=== PATIENT | male | born 1970 | race Caucasian/White ===

== ENCOUNTER 2016-07-16 09:26 | Emergency (ER) | payer BC, MEDICAID ==
[2016-07-16] MEDS ORDERED: Bupivacaine 0.5% 30 ML SDV INFILT ONE (09:30)
[2016-07-16] MEDS ORDERED: Propofol 200 MG/20 ML SDV IVPUSH ONE ×2 (09:46→10:30)
--- NOTE | 2016-07-16 09:52 | EDM.PDOC ---
ED HPI Trauma - General Stated Complaint: LEFT THUMB TWISTED Time Seen by Provider: 07/16/16 09:35 Source: Reports: Patient History Limitations: Reports: No limitations - History of Present Illness INITIAL COMMENTS - FREE TEXT/NARRATIVE: 45-year-old male with traumatic injury to his left thumb. His hand got caught in the Ice Auger , his gloved hand was traumatized. He has an obvious dislocation of the left thumb at the MP joint. Occurred When: just prior to arrival Severity: moderate Pain/Injury Location: Reports: upper extremity, left Associated Symptoms: Reports: denies other symptoms Allergies/ADRs: Allergies amoxicillin Allergy (Verified 07/16/16 09:34) Cannot Remember Home Medications: Ambulatory Orders LORazepam [LORazepam] 1 mg PO ASDIRECTED PRN 04/27/16 [Confirmed 07/16/16] Past Medical History HEENT History: Reports: Impaired vision Gastrointestinal History: Reports: Other (see below) Other Gastrointestinal History: elevaeted liver enzymes Musculoskeletal History: Reports: Back pain, chronic, Fracture Hematologic History: Reports: Other (see below) 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 Social & Family History - Tobacco Use Smoking Status *Q: Never Smoker Years of Tobacco use: 15 Used Tobacco, but Quit: No Second Hand Smoke Exposure: No - Caffeine Use Caffeine Use: Reports: Soda - Alcohol Use Days Per Week of Alcohol Use: 5 Number of Drinks Per Day: 6 Total Drinks Per Week: 30 - Recreational Drug Use Recreational Drug Use: No Review of Systems - Review of Systems Review Of Systems: See Below Constitutional: Denies: fever Respiratory: Denies: shortness of breath Neurological: Reports: dizziness Psychiatric: Reports: anxiety Trauma Exam - Physical Exam Exam: See Below Exam Limited By: No limitations General Appearance: Reports: alert, anxious, moderate distress Head: Reports: atraumatic Respiratory Exam: Reports: no respiratory distress Extremities: Reports: other (Left hand shows obvious dislocation and deformity of the left thumb. There is some ecchymosis to the DIP joint and subungual area.) Course - Vital Signs Last Recorded V/S: Last Vital Signs Temp 96.8 F 07/16/16 09:35 Pulse 84 03/09/17 10:15 Resp 16 07/16/16 10:15 BP 116/88 07/16/16 10:15 Pulse Ox 95 07/16/16 10:15 - Orders/Labs/Meds Meds: Medications Discontinued Medications Generic Name Dose Route Start Last Admin Trade Name Kameron PRN Reason Stop Dose Admin Bupivacaine HCl 30 ml 07/16/16 09:30 07/16/16 09:43 Marcaine 0.5% INFILT 07/16/16 09:31 30 ml ONETIME ONE Administration Ketorolac Tromethamine 30 mg 07/16/16 10:37 07/16/16 11:01 Toradol IVPUSH 07/16/16 10:38 30 mg ONETIME ONE Administration Propofol 100 mg 07/16/16 10:30 07/16/16 10:04 Diprivan 20 Ml IVPUSH 07/16/16 10:31 100 mg ONETIME ONE Administration - Re-Assessments/Exams Free Text/Narrative Re-Assessment/Exam: 07/16/16 10:15 A Marcaine digital block was performed with marginal effect. Patient was then given 100 mg of propofol IV and his thumb was reduced under sedation. A prereduction x-ray showed a likely fracture, postreduction showed normal alignment. There is however an angulated displaced fracture of the base of the proximal phalanx. Dr. hTanh Rogers, orthopedics was consulted and will see the patient this afternoon. 30 mg of Toradol IV was given. 07/16/16 10:56 Patient was discharged to the care of orthopedics. He will followup tomorrow with hand surgeon Dr. Goldberg at [facility] in [place]. Departure - Departure Time of Disposition: 11:43 Disposition: Home, Self-Care 01 Condition: good Clinical Impression: Fracture dislocation of left thumb Qualifiers: Encounter type: initial encounter Fracture type: closed Qualified Code(s): S62.502A - Fracture of unspecified phalanx of left thumb, initial encounter for closed fracture Instructions: Finger or Thumb Dislocation, [id number] Referrals: PCP,None [Primary Care Provider] - Forms: ED Department Discharge Care Plan Goals: Follow guidelines and care suggestions by orthopedics.
[2016-07-16 10:21] VITALS: BP 116/88
[2016-07-16] MEDS ORDERED: Ketorolac 30 MG/ML SDV IVPUSH ONE (10:37)
--- NOTE | 2016-07-16 11:20 | CR ---
Left hand pre and post reduction There is a dislocation of the first MCP joint. There is a fracture involving the base of the proxima l phalanx. There is an adjacent fragment of bone measuring 7 mm. Following closed reduction there is successful realignment of the joint. There is mild displacement of the previously described fracture fragment at the base of the proximal phalanx. Impression: 1. Fracture dislocation of the first MCP joint with successful reduction.
--- NOTE | 2016-07-16 13:02 | PCM.CONS ---
H&P History of Present Illness - General Source of Information: Patient History Limitations: Reports: No limitations - History of Present Illness Onset of Symptoms: Reports: today, sudden Duration of Symptoms: Reports: Hour(s): Location: Reports: upper extremity, left Quality: Reports: Ache, Pressure, Throbbing Severity: moderate Improves with: Reports: None Worsens with: Reports: Immobilization Associated Symptoms: Reports: denies other symptoms Left 1-Thumb Pain Score (Numeric/FACES): 7 - Related Data Allergies/Adverse Reactions: Allergies Allergy/AdvReac Type Severity Reaction Status Date / Time amoxicillin Allergy Cannot Verified 07/16/16 09:34 Remember Home Medications: Home Meds LORazepam [LORazepam] 1 mg PO ASDIRECTED PRN 04/27/16 [History] Past Medical History HEENT History: Reports: Impaired vision Gastrointestinal History: Reports: Other (see below) Other Gastrointestinal History: elevaeted liver enzymes Musculoskeletal History: Reports: Back pain, chronic, Fracture Hematologic History: Reports: Other (see below) 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 Social & Family History - Tobacco Use Smoking Status *Q: Never Smoker Years of Tobacco use: 15 Used Tobacco, but Quit: No Second Hand Smoke Exposure: No - Caffeine Use Caffeine Use: Reports: Soda - Alcohol Use Days Per Week of Alcohol Use: 5 Number of Drinks Per Day: 6 Total Drinks Per Week: 30 - Recreational Drug Use Recreational Drug Use: No H&P Review of Systems - Review of Systems: Review Of Systems: See Below General: Reports: no symptoms HEENT: Reports: no symptoms Pulmonary: Reports: no symptoms Cardiovascular: Reports: no symptoms Gastrointestinal: Reports: No symptoms Genitourinary: Reports: no symptoms Musculoskeletal: Reports: hand pain, joint swelling Skin: Reports: no symptoms Psychiatric: Reports: no symptoms Neurological: Reports: no symptoms Hematologic/Lymphatic: Reports: no symptoms Immunologic: Reports: no symptoms Exam - Exam Exam: See Below - Vital Signs Vital Signs: Last Vital Signs Temp 96.8 F 07/16/16 09:35 Pulse 84 07/16/16 10:15 Resp 16 07/16/16 10:15 BP 116/88 07/16/16 10:15 Pulse Ox 95 07/16/16 10:15 Weight: 176 lb - Exam General: alert, oriented Extremities: normal pulses Skin: warm, dry, intact Neuro Extensive - Mental Status: alert, oriented x3, normal mood/affect Physical Exam Comments:: requesting consultation physician: Jaime I had the pleasure of seeing the patient today in the emergency department.He is a pleasant 45-year-old male who was using an ice auger and dislocated his left thumb metacarpophalangeal joint. In the emergency department it was relocated by the emergency department staff. I was consulted for management at this point in time. He denies any previous injury to the left hand. He is right-hand dominant. Physical examination: Physical examination of the left thumb shows some mild bruising and mild swelling present. Distal motor and sensory examinations is grossly intact. I did not perform range of motion exam secondary to the dislocation. Capillary refill time is less than 2 seconds. The thumb is warm and pink. Imaging: Pre reduction imaging shows a 90 dislocation of the metacarpophalangeal joint of the left thumb. Postreduction radiographs showed good reduction. Plan: I did discuss this case with one of my classmates is a hand surgeon. Due to the patient's young age and physical labor demands at his job, I would like him to see a hand surgeon to discuss collateral ligament reconstruction. We have placed him into a thumb spica splint today. He will followup with a hand surgeon. Consult PN Assessment/Plan POD#: 0 Procedures: Procedures ASSAY OF CREATININE (11/14/15) ASSAY OF LACTIC ACID (04/27/16) ASSAY OF LIPASE (04/27/16) ASSAY OF TROPONIN QUANT (04/27/16) BLOOD CULTURE FOR BACTERIA (09/22/15) CHEST X-RAY 2VW FRONTAL&LATL (09/22/15) COMPLETE CBC W/AUTO DIFF WBC (04/27/16) COMPREHEN METABOLIC PANEL (04/27/16) CT ABD & PELV W/CONTRAST (04/27/16) DRAINAGE OF SKIN ABSCESS (11/17/14) ECHO EXAM OF ABDOMEN (08/28/15) EMERGENCY DEPT VISIT (04/27/16) EMERGENCY DEPT VISIT (09/22/15) EMERGENCY DEPT VISIT (11/17/14) EMERGENCY DEPT VISIT (11/17/14) HYDRATE IV INFUSION ADD-ON (04/27/16) IMMUNIZATION ADMIN (11/17/14) INFLUENZA ASSAY W/OPTIC (09/22/15) ROUTINE VENIPUNCTURE (04/27/16) TDAP VACCINE 7 YRS/> IM (11/17/14) THER/PROPH/DIAG INJ IV PUSH (04/27/16) THER/PROPH/DIAG INJ SC/IM (11/17/14) TX/PRO/DX INJ NEW DRUG ADDON (04/27/16) URINALYSIS AUTO W/SCOPE (09/22/15) Problem List Initiated/Reviewed/Updated: Yes Requesting Provider: Jaime Date Consult Requested: 07/16/16 Reason for Consult: thumb dislocation Patient History Reviewed: Yes Admission H&P Reviewed: Yes Notified Requestor: Yes
== END 2016-07-16 11:30 | disposition home or self-care (01) ==
LOC: JP.ED 09:26
DX: S62.512A Displaced fracture of proximal phalanx of left thumb, initial encounter for closed fracture (principal); Z88.1 Allergy status to other antibiotic agents; Z90.49 Acquired absence of other specified parts of digestive tract; W23.0XXA Caught, crushed, jammed, or pinched between moving objects, initial encounter
CPT/HCPCS: 26742; 73120; 73130; 96374; 96375; 99284; J1885; J2704

== ENCOUNTER 2020-09-16 08:34 | Emergency (ER) | payer BC ==
[2020-09-16 08:51] VITALS: BP 143/86; PULSE 98
--- NOTE | 2020-09-16 09:19 | EDM.PDOC ---
ED HPI GENERAL MEDICAL PROBLEM - General Chief Complaint: Fever Stated Complaint: FROM [facility]ION [facility] Time Seen by Provider: 09/16/20 09:05 Source of Information: Reports: Patient, Old Records, RN History Limitations: Reports: No Limitations - History of Present Illness INITIAL COMMENTS - FREE TEXT/NARRATIVE: 50 yo [facility] for a fever that patient had yesterday that resolved with antipyretics and has not returned. He is on chemo for hairy cell leukemia and is leukopenic. He has no current sx's. He says this same thing happened the last time he got chemo. His primary is Dr. Hastings. He does report some urinary frequency currently. He denies respiratory sx's. Today's total WBC ct is 0.3, and the % neutrophils is 64. His Plt's are only 49K. Onset: Sudden Onset Date: 09/15/20 Duration: Hour(s): (1), Resolved Prior to Arrival Location: Reports: Generalized Quality: Reports: Other (no pain reported) Severity: Mild Improves with: Reports: Medication (acetaminophen) Worsens with: Reports: Other (? 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 yesterday only) - Related Data Allergies Allergy/AdvReac Type Severity Reaction Status Date / Time amoxicillin Allergy Cannot Verified 09/16/20 08:50 Remember Home Meds: Home Meds Acyclovir 200 mg PO BID 09/16/20 [History] Nicotine [Habitrol] 1 applic TOP DAILY 09/16/20 [History] Ondansetron [Zofran ODT] 4 mg PO Q6H PRN 09/16/20 [History] Prochlorperazine [Compazine] 10 mg PO Q6H PRN 09/16/20 [History] Past Medical History HEENT History: Reports: Impaired Vision Gastrointestinal History: Reports: Other (See Below) Other Gastrointestinal History: elevaeted liver enzymes Musculoskeletal History: Reports: Back Pain, Chronic, Fracture Hematologic History: Reports: Other (See Below) 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 Social & Family History - Tobacco Use Tobacco Use Status *Q: Former Tobacco User Years of Tobacco use: 20 Packs/Tins Daily: 1 Used Tobacco, but Quit: Yes Month/Year Tobacco Last Used: 07/2020 - Caffeine Use Caffeine Use: Reports: Coffee, Soda - Recreational Drug Use Recreational Drug Use: No ED ROS GENERAL - Review of Systems Review Of Systems: See Below Constitutional: Reports: Fever (last yesterday) HEENT: Reports: No Symptoms Respiratory: Reports: No Symptoms Cardiovascular: Reports: No Symptoms Endocrine: Reports: No Symptoms GI/Abdominal: Reports: No Symptoms : Reports: Frequency Musculoskeletal: Reports: No Symptoms Skin: Reports: Pruritis (mild), Rash Neurological: Reports: No Symptoms ED EXAM, SEPSIS - Physical Exam Exam: See Below Exam Limited By: No Limitations General Appearance: Alert, WD/WN, No Apparent Distress Eye Exam: Bilateral Eye: Normal Inspection Ears: Normal External Exam, Normal Canal, Hearing Grossly Normal, Normal TMs Nose: Normal Inspection, No Blood Throat/Mouth: Normal Inspection, Normal Lips, Normal Oropharynx, Normal Voice, No Airway Compromise Head: Atraumatic, Normocephalic Neck: Normal Inspection Respiratory/Chest: No Respiratory Distress, Lungs Clear, Normal Breath Sounds, No Accessory Muscle Use Cardiovascular: Regular Rate, Rhythm, No Edema GI/Abdominal Exam: Normal Bowel Sounds, Soft, Non-Tender, No Distention Back: Normal Inspection. No: CVA Tenderness (R), CVA Tenderness (L) Extremities: Normal Inspection, Normal Range of Motion, Non-Tender, No Pedal Edema Neurological: Alert, Oriented, CN II-XII Intact, Normal Cognition, No Motor/Sensory Deficits Psychiatric: Normal Affect, Normal Mood Skin: Warm, Dry, Intact, Normal Color, Other (diffuse red rash). No: No Rash Course - Vital Signs Last Recorded V/S: Last Vital Signs Temp 38.3 C H 09/16/20 09:37 Pulse 98 09/16/20 08:57 Resp 16 09/16/20 08:57 BP 143/86 H 09/16/20 08:57 Pulse Ox 98 09/16/20 08:57 - Orders/Labs/Meds Orders: Active Orders 24 hr Category Date Time Status CULTURE BLOOD [BC] Stat Lab 09/16/20 09:20 Received CULTURE BLOOD [BC] Stat Lab 09/16/20 09:25 Received Labs: Laboratory Tests 09/16/20 Range/Units 09:35 Urine Color Yellow (YELLOW) Urine Appearance Clear (CLEAR) Urine pH 5.5 (5.0-8.0) Ur Specific [place] 1.025 (1.008-1.030) Urine Protein Negative (NEGATIVE) mg/dL Urine Glucose (UA) Negative (NEGATIVE) mg/dL Urine Ketones Negative (NEGATIVE) mg/dL Urine Occult Blood Negative (NEGATIVE) Urine Nitrite Negative (NEGATIVE) Urine Bilirubin Negative (NEGATIVE) Urine Urobilinogen 0.2 (0.2-1.0) EU/dL Ur Leukocyte Esterase Negative (NEGATIVE) Urine RBC Not seen (0-5) Urine WBC Not seen (0-5) Ur Epithelial Cells Not seen Amorphous Sediment Not seen Urine Bacteria Not seen Urine Mucus Few Meds: Medications Discontinued Medications Generic Name Dose Route Start Last Admin Trade Name Kameron PRN Reason Stop Dose Admin Acetaminophen 1,000 mg 09/16/20 09:50 09/16/20 09:58 Acetaminophen 500 Mg Tab PO 09/16/20 09:51 1,000 mg ONETIME ONE Administration Levofloxacin 500 mg 09/16/20 09:51 09/16/20 09:58 Levofloxacin 500 Mg Tab PO 09/16/20 09:52 500 mg ONETIME ONE Administration - Re-Assessments/Exams Free Text/Narrative Re-Assessment/Exam: 09/16/20 09:51 Fever returned while waiting in the ER after his blood draw. Acetaminophen given and Levaquin po. Departure - Departure Time of Disposition: 10:30 Disposition: Home, Self-Care 01 Condition: Fair Clinical Impression: Bacteremia Leukopenia Qualifiers: Leukopenia type: neutropenia Neutropenia type: secondary to cancer chemotherapy Qualified Code(s): D70.1 - Agranulocytosis secondary to cancer chemotherapy; T45.1X5A - Adverse effect of antineoplastic and immunosuppressive drugs, initial encounter - Discharge Information *PRESCRIPTION DRUG MONITORING PROGRAM REVIEWED*: Not Applicable *COPY OF PRESCRIPTION DRUG MONITORING REPORT IN PATIENT MACARIO: Not Applicable Referrals: Zachary Hastings MD [Primary Care Provider] - Forms: ED Department Discharge Additional Instructions: Drink ample fluids. Take acetaminophen as needed for fever. Discuss your WBC count of 0.3k(300) and a neutrophil count of 64% with your oncologist today. Follow up with Dr. Hastings in 2 days to review your blood culture results. Take your next dose of Levaquin at 10 am tomorrow and take a dose every 24hrs. Isolate yourself to reduce the risk of julianna any additional infections. Return here if worse before your appt with Dr. Hastings. Sepsis Event Note (ED) - Evaluation Sepsis Screening Result: No Definite Risk - Focused Exam Vital Signs: Vital Signs Temp Pulse Resp BP Pulse Ox 09/16/20 09:37 38.3 C H 09/16/20 08:57 37.1 C 98 16 143/86 H 98 09/16/20 08:49 37.1 C 98 16 143/86 H 98 - My Orders Last 24 Hours: My Active Orders 09/16/20 09:20 CULTURE BLOOD [BC] Stat 09/16/20 09:25 CULTURE BLOOD [BC] Stat - Assessment/Plan Last 24 Hours: My Active Orders 09/16/20 09:20 CULTURE BLOOD [BC] Stat 09/16/20 09:25 CULTURE BLOOD [BC] Stat
[2020-09-16] MEDS ORDERED: Acetaminophen 500 MG Tab PO ONE (09:50)
[2020-09-16] MEDS ORDERED: Levofloxacin 500 MG Tab PO ONE (09:51)
== END 2020-09-16 10:49 | disposition home or self-care (01) ==
LOC: JP.ED 08:34
DX: D70.1 Agranulocytosis secondary to cancer chemotherapy (principal); T45.1X5A Adverse effect of antineoplastic and immunosuppressive drugs, initial encounter; R78.81 Bacteremia; Z88.0 Allergy status to penicillin; Z87.891 Personal history of nicotine dependence; Z85.6 Personal history of leukemia
CPT/HCPCS: 36415; 81001; 87040; 99283; A9270

== ENCOUNTER 2020-09-16 16:58 | Inpatient (IN) | payer BC ==
[2020-09-16] MEDS ORDERED: Polyethylene Glycol 3350 Powder 17 GM Packet PO PRN (17:14)
[2020-09-16] MEDS ORDERED: Sodium Chloride 0.9% 10 ML Syringe FLUSH PRN (17:14)
--- NOTE | 2020-09-16 17:25 | PCM.HP.2 ---
H&P History of Present Illness - General Date of Service: 09/16/20 Admit Problem/Dx: Admission Diagnosis/Problem Admission Diagnosis/Problem Fever Source of Information: Patient, Family, Provider, RN Notes Reviewed History Limitations: Reports: No Limitations - History of Present Illness Initial Comments - Free Text/Narative: Mr. Nguyen is a 50-year-old gentleman who was admitted as a direct admission from the oncology clinic because of neutropenic fever. He has a history of recurrent hairy cell leukemia and last week received a 5-day course of chemotherapy. He has experienced a rash following chemotherapy and over the last 3 days noted low-grade temperature elevations between 100-101 degrees. Today he is felt weak and noted more intense fever. Temperature was documented at 102.6 degrees. Earlier in the day he had been seen in the emergency department, blood cultures were obtained and urinalysis showed no evidence of infection. He was feeling somewhat improved following IV fluids and was discharged home. He slept for a while at home and then awoke with significant temperature elevation. His oncology provider recommended that he come into the hospital for admission and broad-spectrum IV antibiotic therapy. Other than the fever he is noted no other localized symptoms of infection. He currently does not have a port or central line. - Related Data Allergies/Adverse Reactions: Allergies Allergy/AdvReac Type Severity Reaction Status Date / Time amoxicillin Allergy Cannot Verified 09/16/20 08:50 Remember Home Medications: Home Meds Acetaminophen [Tylenol Extra Strength] 1,000 mg PO Q6HR PRN 09/16/20 [History] Acyclovir 200 mg PO BID 09/16/20 [History] Ibuprofen 600 mg PO Q6HR PRN 09/16/20 [History] Ondansetron [Zofran ODT] 4 mg PO Q6H PRN 09/16/20 [History] Prochlorperazine [Compazine] 10 mg PO Q6H PRN 09/16/20 [History] diphenhydrAMINE [Benadryl] 50 mg PO Q6HR PRN 09/16/20 [History] Past Medical History HEENT History: Reports: Impaired Vision Gastrointestinal History: Reports: Other (See Below) Other Gastrointestinal History: elevaeted liver enzymes Musculoskeletal History: Reports: Back Pain, Chronic, Fracture Hematologic History: Reports: Other (See Below) 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 Social & Family History - Caffeine Use Caffeine Use: Reports: Coffee, Soda H&P Review of Systems - Review of Systems: Review Of Systems: See Below General: Reports: Fever, Chills, Malaise, Weakness, Fatigue, Decreased Appetite HEENT: Reports: No Symptoms Pulmonary: Reports: No Symptoms Cardiovascular: Reports: No Symptoms Gastrointestinal: Reports: Constipation, Decreased Appetite. Denies: Abdominal Pain, Diarrhea, Difficulty Swallowing, Distension, Hematemesis, Hematochezia, Melena, Nausea, Vomiting Genitourinary: Reports: No Symptoms Musculoskeletal: Reports: No Symptoms Skin: Reports: Pruritis, Rash. Denies: Wound, Lesions, Lumps Psychiatric: Reports: No Symptoms Neurological: Reports: No Symptoms Hematologic/Lymphatic: Reports: No Symptoms Immunologic: Reports: No Symptoms Exam - Exam Exam: See Below - Vital Signs Vital Signs: Last Vital Signs Temp 99.9 F 09/16/20 17:22 Pulse 99 09/16/20 17:22 Resp 16 09/16/20 17:22 BP 126/62 09/16/20 17:22 Pulse Ox 98 09/16/20 17:22 - Exam Quality Assessment: DVT Prophylaxis General: Alert, Oriented, Cooperative, Moderate Distress HEENT: Conjunctiva Clear, Hearing Intact, Mucosa Moist & [place], Normal Nasal Septum, Posterior Pharynx Clear, Pupils Equal Neck: Supple, Trachea Midline, +2 Carotid Pulse wo Bruit Lungs: Clear to Auscultation, Normal Respiratory Effort Cardiovascular: Regular Rate, Regular Rhythm, Normal S1, Normal S2. No: Systolic Murmur, Diastolic Murmur GI/Abdominal Exam: Soft, Non-Tender, No Organomegaly, No Distention Back Exam: Normal Inspection, Full Range of Motion Extremities: Non-Tender, No Pedal Edema Skin: Warm, Dry, Intact, Rash. No: Petechia, Wound Neurological: Cranial Nerves Intact, Strength Equal Bilateral, Normal Speech, Normal Tone, Sensation Intact. No: Focal Deficit Neuro Extensive - Mental Status: Alert, Oriented x3, Normal Mood/Affect, Normal Cognition, Memory Intact Sepsis Event Note - Focused Exam Vital Signs: Vital Signs Temp Pulse Resp BP Pulse Ox 09/16/20 17:22 99.9 F 99 16 126/62 98 *Q Meaningful Use (ADM) - VTE Risk Assess *Q Each Risk Factor Represents 1 Point: Age 41 - 59 years, Obesity ( BMI > 25 kg/m2) Total Score 1 Point Risk Factors: 2 Each Risk Factor Represents 2 Points: Malignancy (present or previous) Total Score 2 Point Risk Factors: 2 Each Risk Factor Represents 3 Points: None Total Score 3 Point Risk Factors: 0 Each Risk Factor Represents 5 Points: None Total Score 5 Point Risk Factors: 0 Venous Thromboembolism Risk Factor Score *Q: 4 Problem List Initiated/Reviewed/Updated: Yes Orders Last 24hrs: Active Orders 24 hr Category Date Time Status Patient Status [ADT] Routine ADT 09/16/20 17:14 Ordered Ambulate [RC] QID Care 09/16/20 17:14 Ordered Antiembolic Devices [RC] .Routine Care 09/16/20 17:14 Ordered Height and Weight [RC] DAILY Care 09/16/20 17:14 Ordered Intake and Output [RC] QSHIFT Care 09/16/20 17:14 Ordered Notify Provider Vital Signs [RC] ASDIRECTED Care 09/16/20 17:14 Ordered Oxygen Therapy [RC] PRN Care 09/16/20 17:14 Ordered Peripheral IV Care [RC] . DIRECTED Care 09/16/20 17:19 Ordered Up to Chair [RC] QID Care 09/16/20 17:14 Ordered VTE/DVT Education [RC] Per Unit Routine Care 09/16/20 17:14 Ordered Vital Signs [RC] Q4H Care 09/16/20 17:14 Ordered Regular Diet [DIET] Diet 09/16/20 Dinner Ordered Chest 2V [CR] Stat Exams 09/16/20 17:14 Ordered BASIC METABOLIC PANEL,BMP [CHEM] Stat Lab 09/16/20 17:24 Ordered CBC WITH AUTO DIFF [HEME] AM Lab 09/17/20 05:11 Ordered COMPREHENSIVE METABOLIC PN,CMP [CHEM] AM Lab 09/17/20 05:11 Ordered CULTURE BLOOD [BC] Stat Lab 09/16/20 17:14 Ordered CULTURE BLOOD [BC] Stat Lab 09/16/20 17:14 Ordered MAGNESIUM [CHEM] AM Lab 09/17/20 05:11 Ordered Acetaminophen [TylenoL] Med 09/16/20 17:14 Ordered 650 mg PO Q4H PRN Cefepime [Maxipime] 2 gm Med 09/16/20 17:30 Ordered Sodium Chloride 0.9% [Normal Saline] 50 ml IV Q8H Ondansetron [Zofran] Med 09/16/20 17:14 Ordered 4 mg IV Q4H PRN Sodium Chloride 0.9% @ 125 MLS/HR (1000ml) Med 09/16/20 17:15 Ordered Sodium Chloride 0.9% [Normal Saline] 1,000 ml IV ASDIRECTED Sodium Chloride 0.9% [Saline Flush] Med 09/16/20 17:14 Ordered 10 ml FLUSH ASDIRECTED PRN Vancomycin Med 09/16/20 18:00 Ordered 1 gm IV .PHARMACY TO DOSE polyethylene glycoL 3350 [MiraLAX] Med 09/16/20 17:14 Ordered 17 gm PO DAILY PRN Blood Culture x2 Reflex Set [OM.PC] Stat Oth 09/16/20 17:18 Ordered Peripheral IV Insertion Adult [OM.PC] Routine Oth 09/16/20 17:14 Ordered Sequential Compression Device [OM.PC] Per Unit Routine Oth 09/16/20 17:17 Ordered Resuscitation Status Routine Resus Stat 09/16/20 17:14 Ordered Assessment/Plan Comment:: ASSESSMENT AND PLAN NEUTROPENIC FEVER-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 Urinalysis obtained earlier today shows no obvious infection. By history and physical examination no obvious source identified. -2 sets of blood cultures pending -CBC with differential in a.m. -PA and lateral chest x-ray -Initiate broad-spectrum antibiotic therapy; vancomycin and cefepime -Tylenol as needed for fever -IV fluids for hydration, reassess in a.m. HAIRY CELL LEUKEMIA-status post recent course of chemotherapy, complicated by neutropenia MAINTENANCE ISSUES -DVT prophylaxis; SCUDs -GI prophylaxis; not indicated -Victor catheter; not indicated -Nutrition; regular diet -Nicotine dependence; not required CODE STATUS-FULL CODE ADMISSION STATUS-patient will be admitted to inpatient status, expect at least a 2 night hospital stay for evaluation and management of problems as outlined above. At the time of this admission I do not reasonably expected evaluation and management of this problem will require more than a 96 hour hospital stay. DISPOSITION-anticipate discharge to home after the hospital stay. PRIMARY CARE PROVIDER-Dr. Hastings - Mortality Measure Prognosis:: Good
[2020-09-16] MEDS ORDERED: Vancomycin 1 GM SDV IV SCH (18:00)
[2020-09-16] MEDS: Sodium Chloride 0.9% 1,000 ML IV SCH (18:09)
[2020-09-16] MEDS: Cefepime 2 GM in Sodium Chloride 0.9% 50 ML IV SCH (18:10)
[2020-09-16] MEDS: diphenhydrAMINE 25 MG Cap PO PRN (18:24)
[2020-09-16] MEDS: Ondansetron 4 MG/2 ML SDV IV PRN (18:52)
[2020-09-16] MEDS ORDERED: Calcium Carbonate 500 MG Tab.Chew PO PRN (20:42)
[2020-09-16] MEDS ORDERED: Pantoprazole 40 MG Vial IVPUSH SCH (22:30)
[2020-09-16] MEDS: Prochlorperazine 10 MG Tab PO PRN (23:34)
[2020-09-16] MEDS: Acetaminophen 325 MG Tab PO PRN (23:39)
[2020-09-17] MEDS: diphenhydrAMINE 25 MG Cap PO PRN (02:22)
[2020-09-17] MEDS: Cefepime 2 GM in Sodium Chloride 0.9% 50 ML IV SCH ×3 (02:22→17:38)
[2020-09-17] MEDS: Sodium Chloride 0.9% 1,000 ML IV SCH ×2 (02:25→11:28)
[2020-09-17] MEDS: Prochlorperazine 10 MG Tab PO PRN (07:24)
--- NOTE | 2020-09-17 09:14 | CR ---
CHEST: 2 view CLINICAL HISTORY:Neutropenia, fever COMPARISON:2016 FINDINGS: The heart size, pulmonary vascularity and hilar structures are normal. No infiltrate effusion or pneumothorax is seen. IMPRESSION: No acute cardiopulmonary process.
[2020-09-17] MEDS: Ondansetron 4 MG/2 ML SDV IV PRN (10:14)
[2020-09-17] MEDS: Acetaminophen 325 MG Tab PO PRN ×3 (10:45→23:53)
--- NOTE | 2020-09-17 14:22 | PCM.PN ---
- General Info Date of Service: 09/17/20 Subjective Update: Mr. Nguyen has been stable since admission with no recurrent significant temperature elevation since yesterday. Subjectively he feels improved, somewhat stronger with improved appetite. Neutrophil count remains extremely low. Functional Status: Reports: Tolerating Diet, Urinating - Review of Systems General: Reports: Weakness, Fatigue. Denies: Fever, Chills Pulmonary: Reports: No Symptoms Cardiovascular: Reports: No Symptoms Gastrointestinal: Reports: No Symptoms Genitourinary: Reports: No Symptoms - Patient Data Vitals - Most Recent: Last Vital Signs Temp 100.1 F 09/17/20 11:15 Pulse 100 09/17/20 10:37 Resp 18 09/17/20 10:37 BP 125/72 09/17/20 10:37 Pulse Ox 100 09/17/20 10:37 Weight - Most Recent: 180 lb 0.013 oz I&O - Last 24 Hours: Intake & Output 09/16/20 09/17/20 09/17/20 22:59 06:59 14:59 Intake Total 450 2403 Output Total 200 200 600 Balance 250 -200 1803 Lab Results Last 24 Hours: Laboratory Results - last 24 hr 09/16/20 09/17/20 09/17/20 Range/Units 17:40 04:00 04:00 WBC 0.3 L* (4.5-11.0) K/uL RBC 4.17 L (4.30-5.90) M/uL Hgb 12.7 D (12.0-15.0) g/dL Hct 36.9 L (40.0-54.0) % MCV 89 (80-98) fL MCH 31 (27-31) pg MCHC 34 (32-36) % Plt Count 61 L (150-400) K/uL Neut % (Auto) 71 H (36-66) % Lymph % (Auto) 14 L (24-44) % [place] % (Auto) 4 (2-6) % Eos % (Auto) 11 H (2-4) % Baso % (Auto) 0 (0-1) % Sodium 139 L 139 L (140-148) mmol/L Potassium 4.0 4.3 (3.6-5.2) mmol/L Chloride 103 105 (100-108) mmol/L Carbon Dioxide 22 23 (21-32) mmol/L Anion Gap 18.0 H 15.3 H (5.0-14.0) mmol/L BUN 19 H 18 (7-18) mg/dL Creatinine 1.3 D 1.2 (0.8-1.3) mg/dL Est Cr Clr Drug Dosing 65.77 71.25 mL/min Estimated GFR (MDRD) 58 L > 60 (>60) Glucose 118 H 131 H (74-106) mg/dL Calcium 8.1 L 8.0 L (8.5-10.1) mg/dL Magnesium 1.6 L (1.8-2.4) mg/dL Total Bilirubin 0.9 (0.2-1.0) mg/dL AST 17 (15-37) U/L ALT 35 (12-78) U/L Alkaline Phosphatase 90 (46-116) U/L Total Protein 5.5 L (6.4-8.2) g/dL Albumin 2.8 L (3.4-5.0) g/dL Globulin 2.7 (2.3-3.5) g/dL Albumin/Globulin Ratio 1.0 L (1.2-2.2) Med Orders - Current: Current Medications Acetaminophen (Acetaminophen 325 Mg Tab) 650 mg PO Q4H PRN PRN Reason: Pain (Mild 1-3)/fever Last Admin: 09/17/20 10:45 Dose: 650 mg Documented by: Calcium Carbonate/Glycine (Calcium Carbonate 500 Mg Tab.Chew) 1,000 mg PO Q2H PRN PRN Reason: Indigestion Last Admin: 09/16/20 21:51 Dose: 1,000 mg Documented by: Diphenhydramine HCl (Diphenhydramine 25 Mg Cap) 50 mg PO Q6H PRN PRN Reason: Itching Last Admin: 09/17/20 02:22 Dose: 50 mg Documented by: Cefepime HCl 2 gm/ Sodium (Chloride) 50 mls @ 100 mls/hr IV Q8H [facility] Last Admin: 09/17/20 10:10 Dose: 100 mls/hr Documented by: Vancomycin HCl 1.25 gm/ Sodium (Chloride) 250 mls @ 166.667 mls/hr IV Q12H [facility] Magnesium Oxide (Magnesium Oxide 400 Mg Tab) 400 mg PO BID [facility] Ondansetron HCl (Ondansetron 4 Mg/2 Ml Sdv) 4 mg IV Q4H PRN PRN Reason: Nausea/Vomiting Last Admin: 09/17/20 10:14 Dose: 4 mg Documented by: Pantoprazole Sodium (Pantoprazole 40 Mg Vial) 40 mg IVPUSH Q24H [facility] Last Admin: 09/16/20 23:33 Dose: 40 mg Documented by: Polyethylene Glycol (Polyethylene Glycol 3350 Powder 17 Gm Packet) 17 gm PO DAILY PRN PRN Reason: Constipation Prochlorperazine Maleate (Prochlorperazine 10 Mg Tab) 10 mg PO Q6H PRN PRN Reason: Nausea/Vomiting Last Admin: 09/17/20 07:24 Dose: 10 mg Documented by: Sodium Chloride (Sodium Chloride 0.9% 10 Ml Syringe) 10 ml FLUSH ASDIRECTED PRN PRN Reason: Keep Vein Open Tbo-Filgrastim (Tbo-Filgrastim 300 Mcg/0.5 Ml Syringe) 410 mcg SUBCUT DAILY [facility] Discontinued Medications Sodium Chloride (Normal Saline) 1,000 mls @ 125 mls/hr IV ASDIRECTED [facility] Last Admin: 09/17/20 11:28 Dose: 125 mls/hr Documented by: Vancomycin HCl 1.75 gm/ Sodium (Chloride) 250 mls @ 166.667 mls/hr IV ONETIME ONE Stop: 09/16/20 19:59 Last Admin: 09/16/20 18:43 Dose: 166.667 mls/hr Documented by: Vancomycin HCl 1.25 gm/ Sodium (Chloride) 250 mls @ 166.667 mls/hr IV Q12H [facility] Stop: 09/17/20 10:30 Last Admin: 09/17/20 08:06 Dose: 166.667 mls/hr Documented by: Vancomycin HCl (Vancomycin 1 Gm Sdv) 1 gm IV .PHARMACY TO DOSE [facility] Stop: 09/16/20 18:01 - Exam Quality Assessment: DVT Prophylaxis General: Alert, Oriented, Cooperative, No Acute Distress Lungs: Clear to Auscultation, Normal Respiratory Effort Cardiovascular: Regular Rate, Regular Rhythm, No Murmurs GI/Abdominal Exam: Soft, Non-Tender, No Organomegaly, No Distention Extremities: Non-Tender, No Pedal Edema - Patient Data Lab Results Last 24 hrs: Laboratory Results - last 24 hr 09/16/20 09/17/2009/17/21 Range/Units 17:40 04:00 04:00 WBC 0.3 L* (4.5-11.0) K/uL RBC 4.17 L (4.30-5.90) M/uL Hgb 12.7 D (12.0-15.0) g/dL Hct 36.9 L (40.0-54.0) % MCV 89 (80-98) fL MCH 31 (27-31) pg MCHC 34 (32-36) % Plt Count 61 L (150-400) K/uL Neut % (Auto) 71 H (36-66) % Lymph % (Auto) 14 L (24-44) % [place] % (Auto) 4 (2-6) % Eos % (Auto) 11 H (2-4) % Baso % (Auto) 0 (0-1) % Sodium 139 L 139 L (140-148) mmol/L Potassium 4.0 4.3 (3.6-5.2) mmol/L Chloride 103 105 (100-108) mmol/L Carbon Dioxide 22 23 (21-32) mmol/L Anion Gap 18.0 H 15.3 H (5.0-14.0) mmol/L BUN 19 H 18 (7-18) mg/dL Creatinine 1.3 D 1.2 (0.8-1.3) mg/dL Est Cr Clr Drug Dosing 65.77 71.25 mL/min Estimated GFR (MDRD) 58 L > 60 (>60) Glucose 118 H 131 H (74-106) mg/dL Calcium 8.1 L 8.0 L (8.5-10.1) mg/dL Magnesium 1.6 L (1.8-2.4) mg/dL Total Bilirubin 0.9 (0.2-1.0) mg/dL AST 17 (15-37) U/L ALT 35 (12-78) U/L Alkaline Phosphatase 90 (46-116) U/L Total Protein 5.5 L (6.4-8.2) g/dL Albumin 2.8 L (3.4-5.0) g/dL Globulin 2.7 (2.3-3.5) g/dL Albumin/Globulin Ratio 1.0 L (1.2-2.2) Result Diagrams: 09/17/20 04:00 09/17/20 04:00 Sepsis Event Note - Evaluation Sepsis Screening Result: No Definite Risk - Focused Exam Vital Signs: Vital Signs Temp Temp Pulse Resp BP Pulse Ox 09/17/20 11:15 100.1 F 09/17/20 10:45 100.4 F 09/17/20 10:37 100.4 F 100 18 125/72 100 09/17/20 07:22 98.4 F 88 18 143/79 H 99 09/17/20 02:34 97.8 F 89 18 99 - Problem List Review Problem List Initiated/Reviewed/Updated: Yes - My Orders Last 24 Hours: My Active Orders 09/16/20 Dinner Regular Diet [DIET] 09/16/20 17:14 Patient Status [ADT] Routine Ambulate [RC] QID Antiembolic Devices [RC] .Routine Height and Weight [RC] DAILY Intake and Output [RC] QSHIFT Notify Provider Vital Signs [RC] ASDIRECTED Oxygen Therapy [RC] PRN Up to Chair [RC] QID Vital Signs [RC] Q4H Acetaminophen [TylenoL] 650 mg PO Q4H PRN Ondansetron [Zofran] 4 mg IV Q4H PRN Sodium Chloride 0.9% [Saline Flush] 10 ml FLUSH ASDIRECTED PRN polyethylene glycoL 3350 [MiraLAX] 17 gm PO DAILY PRN Peripheral IV Insertion Adult [OM.PC] Routine Resuscitation Status Routine 09/16/20 17:17 Sequential Compression Device [OM.PC] Per Unit Routine 09/16/20 17:18 Blood Culture x2 Reflex Set [OM.PC] Stat 09/16/20 17:19 Peripheral IV Care [RC] Q12H 09/16/20 17:30 CULTURE BLOOD [BC] Routine 09/16/20 17:40 CULTURE BLOOD [BC] Routine 09/16/20 17:53 diphenhydrAMINE [Benadryl] 50 mg PO Q6H PRN 09/16/20 18:00 Cefepime [Maxipime] 2 gm Sodium Chloride 0.9% [Normal Saline] 50 ml IV Q8H 09/17/20 14:15 Magnesium Oxide 400 mg PO BID Tbo-Filgrastim [Granix] 410 mcg SUBCUT DAILY 09/17/20 14:16 Convert IV to Saline Lock [OM.PC] Routine 09/17/20 20:00 Vancomycin 1.25 gm Sodium Chloride 0.9% [Normal Saline] 250 ml IV Q12H 09/18/20 05:00 BASIC METABOLIC PANEL,BMP [CHEM] Timed CBC WITH AUTO DIFF [HEME] Timed MAGNESIUM [CHEM] Timed - Plan Plan:: ASSESSMENT AND PLAN NEUTROPENIC FEVER-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 Stable since admission with no recurrent temperature elevations, neutrophil count remains extremely low. -2 sets of blood cultures pending -CBC with differential in a.m. -broad-spectrum antibiotic therapy; vancomycin and cefepime -Tylenol as needed for fever -Saline lock IV -Granulocyte colony-stimulating factor-we will start today 5 mcg/kg HAIRY CELL LEUKEMIA-status post recent course of chemotherapy, complicated by neutropenia MAINTENANCE ISSUES -DVT prophylaxis; SCUDs -GI prophylaxis; not indicated -Victor catheter; not indicated -Nutrition; regular diet -Nicotine dependence; not required CODE STATUS-FULL CODE ADMISSION STATUS-patient will be admitted to inpatient status, expect at least a 2 night hospital stay for evaluation and management of problems as outlined above. At the time of this admission I do not reasonably expected evaluation and management of this problem will require more than a 96 hour hospital stay. DISPOSITION-anticipate discharge to home after the hospital stay. PRIMARY CARE PROVIDER-Dr. Hastings
[2020-09-17] MEDS: Magnesium Oxide 400 MG Tab PO SCH ×2 (14:55→20:16)
[2020-09-17] MEDS: Ibuprofen 400 MG Tab PO PRN (17:38)
[2020-09-17] MEDS: Pantoprazole 40 MG Tab.CR PO SCH (20:16)
[2020-09-17] MEDS: Ondansetron 4 MG Tab.DIS PO PRN (22:26)
[2020-09-18] MEDS: Ibuprofen 400 MG Tab PO PRN ×4 (01:10→20:19)
[2020-09-18] MEDS: Cefepime 2 GM in Sodium Chloride 0.9% 50 ML IV SCH ×3 (01:10→18:08)
[2020-09-18] MEDS: Acetaminophen 325 MG Tab PO PRN ×3 (08:42→18:07)
[2020-09-18] MEDS: Magnesium Oxide 400 MG Tab PO SCH ×2 (10:10→22:03)
[2020-09-18] MEDS: diphenhydrAMINE 25 MG Cap PO PRN ×2 (12:54→20:19)
[2020-09-18] MEDS: Ondansetron 4 MG Tab.DIS PO PRN ×3 (12:56→22:03)
[2020-09-18] MEDS ORDERED: Acetaminophen/HYDROcodone 325-10 MG Tab PO PRN (13:31)
--- NOTE | 2020-09-18 13:35 | PCM.PN ---
- General Info Date of Service: 09/18/20 Subjective Update: Mr. Nguyen has remained fairly stable over the last 24 hours. Vital signs have been good, he continues to experience low-grade temperature elevations. Functional Status: Reports: Ambulating, Urinating - Review of Systems General: Reports: Fever, Weakness, Fatigue, Chills Pulmonary: Reports: No Symptoms Cardiovascular: Reports: No Symptoms Gastrointestinal: Reports: No Symptoms Genitourinary: Reports: No Symptoms - Patient Data Vitals - Most Recent: Last Vital Signs Temp 98.8 F 09/18/20 12:54 Pulse 94 09/18/20 10:51 Resp 18 09/18/20 10:51 BP 125/70 09/18/20 10:51 Pulse Ox 98 09/18/20 10:51 Weight - Most Recent: 180 lb 0.013 oz I&O - Last 24 Hours: Intake & Output 09/17/20 09/18/20 09/18/20 22:59 06:59 14:59 Intake Total 621 1100 400 Balance 621 1100 400 Lab Results Last 24 Hours: Laboratory Results - last 24 hr 09/18/20 09/18/20 Range/Units 06:04 06:04 WBC 0.4 L* (4.5-11.0) K/uL RBC 3.67 L (4.30-5.90) M/uL Hgb 11.2 L (12.0-15.0) g/dL Hct 32.7 L (40.0-54.0) % MCV 89 (80-98) fL MCH 31 (27-31) pg MCHC 34 (32-36) % Plt Count 64 L (150-400) K/uL Neut % (Auto) 71 H (36-66) % Lymph % (Auto) 20 L (24-44) % Bacon % (Auto) 0 L (2-6) % Eos % (Auto) 6 H (2-4) % Baso % (Auto) 3 H (0-1) % Sodium 140 (140-148) mmol/L Potassium 3.9 (3.6-5.2) mmol/L Chloride 107 (100-108) mmol/L Carbon Dioxide 24 (21-32) mmol/L Anion Gap 9.3 (5.0-14.0) mmol/L BUN 12 (7-18) mg/dL Creatinine 1.0 (0.8-1.3) mg/dL Est Cr Clr Drug Dosing 85.82 mL/min Estimated GFR (MDRD) > 60 (>60) Glucose 97 (74-106) mg/dL Calcium 7.8 L (8.5-10.1) mg/dL Magnesium 1.7 L (1.8-2.4) mg/dL Kash Results Last 24 Hours: Microbiology 09/16/20 17:40 Aerobic Blood Culture - Preliminary Blood - Arm, Left NO GROWTH AFTER 1 DAY Anaerobic Blood Culture - Preliminary NO GROWTH AFTER 1 DAY 09/16/20 17:30 Aerobic Blood Culture - Preliminary Blood - Arm, Right NO GROWTH AFTER 1 DAY Anaerobic Blood Culture - Preliminary NO GROWTH AFTER 1 DAY Med Orders - Current: Current Medications Acetaminophen (Acetaminophen 325 Mg Tab) 650 mg PO Q4H PRN PRN Reason: Pain (Mild 1-3)/fever Last Admin: 09/18/20 12:54 Dose: 650 mg Documented by: Hydrocodone Bitart/Acetaminophen (Acetaminophen/Hydrocodone 325-5 Mg Tab) 1 tab PO Q4H PRN PRN Reason: Pain Calcium Carbonate/Glycine (Calcium Carbonate 500 Mg Tab.Chew) 1,000 mg PO Q2H PRN PRN Reason: Indigestion Last Admin: 09/16/20 21:51 Dose: 1,000 mg Documented by: Diphenhydramine HCl (Diphenhydramine 25 Mg Cap) 50 mg PO Q6H PRN PRN Reason: Itching Last Admin: 09/18/20 12:54 Dose: 50 mg Documented by: Cefepime HCl 2 gm/ Sodium (Chloride) 50 mls @ 100 mls/hr IV Q8H [facility] [place] Last Admin: 09/18/20 10:42 Dose: 100 mls/hr Documented by: Vancomycin HCl 1.25 gm/ Sodium (Chloride) 250 mls @ 166.667 mls/hr IV Q12H [facility] [place] Last Admin: 09/18/20 08:31 Dose: 166.667 mls/hr Documented by: Ibuprofen (Ibuprofen 400 Mg Tab) 400 mg PO Q6H PRN PRN Reason: Fever Last Admin: 09/18/20 07:41 Dose: 400 mg Documented by: Magnesium Oxide (Magnesium Oxide 400 Mg Tab) 400 mg PO BID [facility] [place] Last Admin: 09/18/20 10:10 Dose: 400 mg Documented by: Ondansetron HCl (Ondansetron 4 Mg Tab.Dis) 4 mg PO Q4H PRN PRN Reason: Nausea/Vomiting Last Admin: 09/18/20 12:56 Dose: 4 mg Documented by: Pantoprazole Sodium (Pantoprazole 40 Mg Tab.Cr) 40 mg PO BEDTIME [facility] [place] Last Admin: 09/17/20 20:16 Dose: 40 mg Documented by: Polyethylene Glycol (Polyethylene Glycol 3350 Powder 17 Gm Packet) 17 gm PO DAILY PRN PRN Reason: Constipation Prochlorperazine Maleate (Prochlorperazine 10 Mg Tab) 10 mg PO Q6H PRN PRN Reason: Nausea/Vomiting Last Admin: 09/17/20 07:24 Dose: 10 mg Documented by: Sodium Chloride (Sodium Chloride 0.9% 10 Ml Syringe) 10 ml FLUSH ASDIRECTED PRN PRN Reason: Keep Vein Open Tbo-Filgrastim (Tbo-Filgrastim 480 Mcg/0.8 Ml Syringe) 420 mcg SUBCUT DAILY [facility] [place] Last Admin: 09/18/20 10:11 Dose: 420 mcg Documented by: Discontinued Medications Hydrocodone Bitart/Acetaminophen (Acetaminophen/Hydrocodone 325-10 Mg Tab) 1 tab PO Q4H PRN PRN Reason: Pain Sodium Chloride (Normal Saline) 1,000 mls @ 125 mls/hr IV ASDIRECTED [facility] [place] Last Admin: 09/17/20 11:28 Dose: 125 mls/hr Documented by: Vancomycin HCl 1.75 gm/ Sodium (Chloride) 250 mls @ 166.667 mls/hr IV ONETIME ONE Stop: 09/16/20 19:59 Last Admin: 09/16/20 18:43 Dose: 166.667 mls/hr Documented by: Vancomycin HCl 1.25 gm/ Sodium (Chloride) 250 mls @ 166.667 mls/hr IV Q12H [facility] [place] Stop: 09/17/20 10:30 Last Admin: 09/17/20 08:06 Dose: 166.667 mls/hr Documented by: Ondansetron HCl (Ondansetron 4 Mg/2 Ml Sdv) 4 mg IV Q4H PRN PRN Reason: Nausea/Vomiting Last Admin: 09/17/20 10:14 Dose: 4 mg Documented by: Pantoprazole Sodium (Pantoprazole 40 Mg Vial) 40 mg IVPUSH Q24H [facility] [place] Last Admin: 09/16/20 23:33 Dose: 40 mg Documented by: Tbo-Filgrastim (Tbo-Filgrastim 300 Mcg/0.5 Ml Syringe) 420 mcg SUBCUT DAILY [facility] [place] Last Admin: 09/17/20 14:51 Dose: 420 mcg Documented by: Vancomycin HCl (Vancomycin 1 Gm Sdv) 1 gm IV .PHARMACY TO DOSE [facility] [place] Stop: 09/16/20 18:01 - Exam General: Alert, Oriented, Cooperative, Mild Distress Lungs: Clear to Auscultation, Normal Respiratory Effort Cardiovascular: Regular Rate, Regular Rhythm, No Murmurs GI/Abdominal Exam: Soft, Non-Tender, No Organomegaly, No Distention Extremities: Non-Tender, No Pedal Edema - Patient Data Lab Results Last 24 hrs: Laboratory Results - last 24 hr 09/18/20 09/18/20 Range/Units 06:04 06:04 WBC 0.4 L* (4.5-11.0) K/uL RBC 3.67 L (4.30-5.90) M/uL Hgb 11.2 L (12.0-15.0) g/dL Hct 32.7 L (40.0-54.0) % MCV 89 (80-98) fL MCH 31 (27-31) pg MCHC 34 (32-36) % Plt Count 64 L (150-400) K/uL Neut % (Auto) 71 H (36-66) % Lymph % (Auto) 20 L (24-44) % Bacon % (Auto) 0 L (2-6) % Eos % (Auto) 6 H (2-4) % Baso % (Auto) 3 H (0-1) % Sodium 140 (140-148) mmol/L Potassium 3.9 (3.6-5.2) mmol/L Chloride 107 (100-108) mmol/L Carbon Dioxide 24 (21-32) mmol/L Anion Gap 9.3 (5.0-14.0) mmol/L BUN 12 (7-18) mg/dL Creatinine 1.0 (0.8-1.3) mg/dL Est Cr Clr Drug Dosing 85.82 mL/min Estimated GFR (MDRD) > 60 (>60) Glucose 97 (74-106) mg/dL Calcium 7.8 L (8.5-10.1) mg/dL Magnesium 1.7 L (1.8-2.4) mg/dL Result Diagrams: 09/18/20 06:04 09/18/20 06:04 Kash Results Last 24 hrs: Microbiology 09/16/20 17:40 Aerobic Blood Culture - Preliminary Blood - Arm, Left NO GROWTH AFTER 1 DAY Anaerobic Blood Culture - Preliminary NO GROWTH AFTER 1 DAY 09/16/20 17:30 Aerobic Blood Culture - Preliminary Blood - Arm, Right NO GROWTH AFTER 1 DAY Anaerobic Blood Culture - Preliminary NO GROWTH AFTER 1 DAY Sepsis Event Note - Evaluation Sepsis Screening Result: Severe Sepsis Risk - Focused Exam Vital Signs: Vital Signs Temp Temp Pulse Resp BP Pulse Ox 09/18/20 12:54 98.8 F 09/18/20 10:51 98.4 F 94 18 125/70 98 09/18/20 09:12 97.3 F 09/18/20 08:42 100.3 F 09/18/20 08:41 97.3 F 09/18/20 08:23 100.2 F 94 18 124/74 98 09/18/20 07:41 208.2 F H 09/18/20 05:50 98.1 F - Problem List Review Problem List Initiated/Reviewed/Updated: Yes - My Orders Last 24 Hours: My Active Orders 09/17/20 14:15 Magnesium Oxide 400 mg PO BID 09/17/20 14:16 Convert IV to Saline Lock [OM.PC] Routine 09/17/20 16:31 Ibuprofen [Motrin] 400 mg PO Q6H PRN 09/17/20 20:00 Vancomycin 1.25 gm Sodium Chloride 0.9% [Normal Saline] 250 ml IV Q12H 09/17/20 21:11 Ondansetron [Zofran ODT] 4 mg PO Q4H PRN 09/18/20 09:00 Tbo-Filgrastim [Granix] 420 mcg SUBCUT DAILY 09/18/20 13:32 Acetaminophen/HYDROcodone [[place] 325-5 MG] 1 tab PO Q4H PRN 09/19/20 05:00 BASIC METABOLIC PANEL,BMP [CHEM] Timed CBC WITH AUTO DIFF [HEME] Timed MAGNESIUM [CHEM] Timed 09/19/20 07:30 VANCOMYCIN TROUGH [CHEM] Timed - Plan Plan:: ASSESSMENT AND PLAN NEUTROPENIC FEVER-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 Stable since admission with only low-grade temperature anahi vations, neutrophil count remains extremely low. -2 sets of blood cultures pending -CBC with differential in a.m. -broad-spectrum antibiotic therapy; vancomycin and cefepime -Tylenol as needed for fever -Saline lock IV -Granulocyte colony-stimulating factor-5 mcg/kg daily HAIRY CELL LEUKEMIA-status post recent course of chemotherapy, complicated by neutropenia MAINTENANCE ISSUES -DVT prophylaxis; SCUDs -GI prophylaxis; not indicated -Victor catheter; not indicated -Nutrition; regular diet -Nicotine dependence; not required CODE STATUS-FULL CODE ADMISSION STATUS-patient will be admitted to inpatient status, expect at least a 2 night hospital stay for evaluation and management of problems as outlined above. At the time of this admission I do not reasonably expected evaluation and management of this problem will require more than a 96 hour hospital stay. DISPOSITION-anticipate discharge to home after the hospital stay. PRIMARY CARE PROVIDER-Dr. Hastings
[2020-09-18] MEDS: Acetaminophen/HYDROcodone 325-5 MG Tab PO PRN ×2 (18:06→22:03)
[2020-09-18] MEDS: Pantoprazole 40 MG Tab.CR PO SCH (22:03)
[2020-09-19] MEDS: Ondansetron 4 MG Tab.DIS PO PRN ×2 (02:22→07:32)
[2020-09-19] MEDS: Ibuprofen 400 MG Tab PO PRN ×4 (02:22→22:59)
[2020-09-19] MEDS: Cefepime 2 GM in Sodium Chloride 0.9% 50 ML IV SCH ×2 (02:22→10:40)
[2020-09-19] MEDS: Acetaminophen/HYDROcodone 325-5 MG Tab PO PRN (03:31)
[2020-09-19] MEDS: diphenhydrAMINE 25 MG Cap PO PRN ×3 (07:32→19:43)
[2020-09-19] MEDS: Magnesium Oxide 400 MG Tab PO SCH ×2 (08:29→21:43)
[2020-09-19] MEDS: Acetaminophen 325 MG Tab PO PRN ×3 (09:21→19:42)
[2020-09-19] MEDS ORDERED: HYDROmorphone 0.5 MG/0.5 ML Syringe IVPUSH ONE (10:20)
[2020-09-19] MEDS ORDERED: diphenhydrAMINE 50 MG/ML SDV IVPUSH ONE (11:00)
[2020-09-19] MEDS ORDERED: Famotidine 20 MG/2 ML SDV IVPUSH ONE (11:00)
--- NOTE | 2020-09-19 11:57 | PCM.PN ---
- General Info Date of Service: 09/19/20 Subjective Update: Mr. Nguyen has remained neutropenic with low-grade fevers. This morning appears to be experiencing vancomycin flushing syndrome, he is very erythematous and experiencing joint and muscle aches with his vancomycin infusion. White blood cell count modestly increased since yesterday with a total white count of 500 and calculated ANC of 274. - Review of Systems General: Reports: Fever, Weakness, Fatigue, Malaise Pulmonary: Reports: Cough, Sputum. Denies: Shortness of Breath, Pleuritic Chest Pain, Hemoptysis, Wheezing Cardiovascular: Reports: Dyspnea on Exertion. Denies: Chest Pain, Palpitations, Orthopnea, PND, Edema, Lightheadedness Gastrointestinal: Reports: No Symptoms Genitourinary: Reports: No Symptoms - Patient Data Vitals - Most Recent: Last Vital Signs Temp 99.9 F 09/19/20 11:36 Pulse 90 09/19/20 07:21 Resp 16 09/19/20 07:21 BP 113/70 09/19/20 07:21 Pulse Ox 98 09/19/20 07:21 Weight - Most Recent: 180 lb 0.013 oz I&O - Last 24 Hours: Intake & Output 09/18/20 09/19/20 09/19/20 22:59 06:59 14:59 Intake Total 1000 1210 Balance 1000 1210 Lab Results Last 24 Hours: Laboratory Results - last 24 hr 09/19/20 09/19/20 09/19/20 Range/Units 07:34 07:34 07:34 WBC 0.5 L* (4.5-11.0) K/uL RBC 3.62 L (4.30-5.90) M/uL Hgb 10.9 L (12.0-15.0) g/dL Hct 32.1 L (40.0-54.0) % MCV 89 (80-98) fL MCH 30 (27-31) pg MCHC 34 (32-36) % Plt Count 69 L (150-400) K/uL Add Manual Diff Yes Neutrophils % (Manual) 54 (36-66) % Band Neutrophils % 4 L (5-11) % Lymphocytes % (Manual) 40 (24-44) % Eosinophils % (Manual) 2 (2-4) % Sodium 139 L (140-148) mmol/L Potassium 3.6 (3.6-5.2) mmol/L Chloride 104 (100-108) mmol/L Carbon Dioxide 26 (21-32) mmol/L Anion Gap 12.6 (5.0-14.0) mmol/L BUN 11 (7-18) mg/dL Creatinine 1.0 (0.8-1.3) mg/dL Est Cr Clr Drug Dosing 85.82 mL/min Estimated GFR (MDRD) > 60 (>60) Glucose 86 (74-106) mg/dL Calcium 7.6 L (8.5-10.1) mg/dL Magnesium 1.7 L (1.8-2.4) mg/dL Vancomycin Trough 7.2 L (10.0-20.0) ug/mL Kash Results Last 24 Hours: Microbiology 09/16/20 17:40 Aerobic Blood Culture - Preliminary Blood - Arm, Left NO GROWTH AFTER 2 DAYS Anaerobic Blood Culture - Preliminary NO GROWTH AFTER 2 DAYS 09/16/20 17:30 Aerobic Blood Culture - Preliminary Blood - Arm, Right NO GROWTH AFTER 2 DAYS Anaerobic Blood Culture - Preliminary NO GROWTH AFTER 2 DAYS Med Orders - Current: Current Medications Acetaminophen (Acetaminophen 325 Mg Tab) 650 mg PO Q4H PRN PRN Reason: Pain (Mild 1-3)/fever Last Admin: 09/19/20 09:21 Dose: 650 mg Documented by: Hydrocodone Bitart/Acetaminophen (Acetaminophen/Hydrocodone 325-5 Mg Tab) 1 tab PO Q4H PRN PRN Reason: Pain Last Admin: 09/19/20 03:31 Dose: 1 tab Documented by: Calcium Carbonate/Glycine (Calcium Carbonate 500 Mg Tab.Chew) 1,000 mg PO Q2H PRN PRN Reason: Indigestion Last Admin: 09/16/20 21:51 Dose: 1,000 mg Documented by: Diphenhydramine HCl (Diphenhydramine 25 Mg Cap) 50 mg PO Q6H PRN PRN Reason: Itching Last Admin: 09/19/20 07:32 Dose: 50 mg Documented by: Hydromorphone HCl (Hydromorphone 0.5 Mg/0.5 Ml Syringe) 0.5 mg IVPUSH Q2H PRN PRN Reason: Pain (severe 7-10) Linezolid 600 mg/ Premix 300 mls @ 300 mls/hr IV Q12H [facility] Meropenem 1 gm/ Sodium (Chloride) 100 mls @ 200 mls/hr IV Q8H [facility] Ibuprofen (Ibuprofen 400 Mg Tab) 400 mg PO Q6H PRN PRN Reason: Fever Last Admin: 09/19/20 10:39 Dose: 400 mg Documented by: Magnesium Oxide (Magnesium Oxide 400 Mg Tab) 400 mg PO BID [facility] Last Admin: 09/19/20 08:29 Dose: 400 mg Documented by: Ondansetron HCl (Ondansetron 4 Mg Tab.Dis) 4 mg PO Q4H PRN PRN Reason: Nausea/Vomiting Last Admin: 09/19/20 07:32 Dose: 4 mg Documented by: Pantoprazole Sodium (Pantoprazole 40 Mg Tab.Cr) 40 mg PO BEDTIME [facility] Last Admin: 09/18/20 22:03 Dose: 40 mg Documented by: Polyethylene Glycol (Polyethylene Glycol 3350 Powder 17 Gm Packet) 17 gm PO DAILY PRN PRN Reason: Constipation Prochlorperazine Maleate (Prochlorperazine 10 Mg Tab) 10 mg PO Q6H PRN PRN Reason: Nausea/Vomiting Last Admin: 09/17/20 07:24 Dose: 10 mg Documented by: Sodium Chloride (Sodium Chloride 0.9% 10 Ml Syringe) 10 ml FLUSH ASDIRECTED PRN PRN Reason: Keep Vein Open Tbo-Filgrastim (Tbo-Filgrastim 480 Mcg/0.8 Ml Syringe) 420 mcg SUBCUT DAILY [facility] Last Admin: 09/19/20 09:21 Dose: 420 mcg Documented by: Discontinued Medications Hydrocodone Bitart/Acetaminophen (Acetaminophen/Hydrocodone 325-10 Mg Tab) 1 tab PO Q4H PRN PRN Reason: Pain Diphenhydramine HCl (Diphenhydramine 50 Mg/Ml Sdv) 50 mg IVPUSH ONETIME ONE Stop: 09/19/20 11:01 Last Admin: 09/19/20 11:36 Dose: 50 mg Documented by: Famotidine (Famotidine 20 Mg/2 Ml Sdv) 20 mg IVPUSH ONETIME ONE Stop: 09/19/20 11:01 Last Admin: 09/19/20 11:40 Dose: 20 mg Documented by: Hydromorphone HCl (Hydromorphone 0.5 Mg/0.5 Ml Syringe) 0.5 mg IVPUSH ONETIME ONE Stop: 09/19/20 10:21 Last Admin: 09/19/20 10:15 Dose: 0.5 mg Documented by: Sodium Chloride (Normal Saline) 1,000 mls @ 125 mls/hr IV ASDIRECTED [facility] Last Admin: 09/17/20 11:28 Dose: 125 mls/hr Documented by: Cefepime HCl 2 gm/ Sodium (Chloride) 50 mls @ 100 mls/hr IV Q8H [facility] Last Admin: 09/19/20 10:40 Dose: Not Given Documented by: Vancomycin HCl 1.75 gm/ Sodium (Chloride) 250 mls @ 166.667 mls/hr IV ONETIME ONE Stop: 09/16/20 19:59 Last Admin: 09/16/20 18:43 Dose: 166.667 mls/hr Documented by: Vancomycin HCl 1.25 gm/ Sodium (Chloride) 250 mls @ 166.667 mls/hr IV Q12H [facility] Stop: 09/17/20 10:30 Last Admin: 09/17/20 08:06 Dose: 166.667 mls/hr Documented by: Vancomycin HCl 1.25 gm/ Sodium (Chloride) 250 mls @ 166.667 mls/hr IV Q12H [facility] Stop: 09/19/20 10:00 Last Admin: 09/19/20 08:25 Dose: 166.667 mls/hr Documented by: Vancomycin HCl 1.25 gm/ Sodium (Chloride) 250 mls @ 167 mls/hr IV Q8H [facility] Ondansetron HCl (Ondansetron 4 Mg/2 Ml Sdv) 4 mg IV Q4H PRN PRN Reason: Nausea/Vomiting Last Admin: 09/17/20 10:14 Dose: 4 mg Documented by: Pantoprazole Sodium (Pantoprazole 40 Mg Vial) 40 mg IVPUSH Q24H [facility] Last Admin: 09/16/20 23:33 Dose: 40 mg Documented by: Tbo-Filgrastim (Tbo-Filgrastim 300 Mcg/0.5 Ml Syringe) 420 mcg SUBCUT DAILY [facility] Last Admin: 09/17/20 14:51 Dose: 420 mcg Documented by: Vancomycin HCl (Vancomycin 1 Gm Sdv) 1 gm IV .PHARMACY TO DOSE [facility] Stop: 09/16/20 18:01 - Exam Quality Assessment: DVT Prophylaxis General: Alert, Oriented, Cooperative, Moderate Distress Lungs: Clear to Auscultation, Normal Respiratory Effort Cardiovascular: Regular Rate, Regular Rhythm, No Murmurs GI/Abdominal Exam: Soft, Non-Tender, No Organomegaly, No Distention Extremities: Non-Tender, Pedal Edema Skin: Other (Marked erythema had upper extremities and torso, less prominent lower extremities) - Patient Data Lab Results Last 24 hrs: Laboratory Results - last 24 hr 09/19/20 09/19/20 09/19/20 Range/Units 07:34 07:34 07:34 WBC 0.5 L* (4.5-11.0) K/uL RBC 3.62 L (4.30-5.90) M/uL Hgb 10.9 L (12.0-15.0) g/dL Hct 32.1 L (40.0-54.0) % MCV 89 (80-98) fL MCH 30 (27-31) pg MCHC 34 (32-36) % Plt Count 69 L (150-400) K/uL Add Manual Diff Yes Neutrophils % (Manual) 54 (36-66) % Band Neutrophils % 4 L (5-11) % Lymphocytes % (Manual) 40 (24-44) % Eosinophils % (Manual) 2 (2-4) % Sodium 139 L (140-148) mmol/L Potassium 3.6 (3.6-5.2) mmol/L Chloride 104 (100-108) mmol/L Carbon Dioxide 26 (21-32) mmol/L Anion Gap 12.6 (5.0-14.0) mmol/L BUN 11 (7-18) mg/dL Creatinine 1.0 (0.8-1.3) mg/dL Est Cr Clr Drug Dosing 85.82 mL/min Estimated GFR (MDRD) > 60 (>60) Glucose 86 (74-106) mg/dL Calcium 7.6 L (8.5-10.1) mg/dL Magnesium 1.7 L (1.8-2.4) mg/dL Vancomycin Trough 7.2 L (10.0-20.0) ug/mL Result Diagrams: 09/19/20 07:34 09/19/20 07:34 Kash Results Last 24 hrs: Microbiology 09/16/20 17:40 Aerobic Blood Culture - Preliminary Blood - Arm, Left NO GROWTH AFTER 2 DAYS Anaerobic Blood Culture - Preliminary NO GROWTH AFTER 2 DAYS 09/16/20 17:30 Aerobic Blood Culture - Preliminary Blood - Arm, Right NO GROWTH AFTER 2 DAYS Anaerobic Blood Culture - Preliminary NO GROWTH AFTER 2 DAYS Sepsis Event Note - Evaluation Sepsis Screening Result: No Definite Risk - Focused Exam Vital Signs: Vital Signs Temp Temp Pulse Resp BP BP Pulse Ox 09/19/20 11:36 99.9 F 09/19/20 10:39 100 F 09/19/20 09:51 100.3 F 09/19/20 09:21 99.9 F 09/19/20 07:21 97.8 F 90 16 113/70 98 09/19/20 04:00 98.1 F 09/19/20 00:00 99.0 F 18 124/74 97 - Problem List Review Problem List Initiated/Reviewed/Updated: Yes - My Orders Last 24 Hours: My Active Orders 09/18/20 13:32 Acetaminophen/HYDROcodone [[place] 325-5 MG] 1 tab PO Q4H PRN 09/19/20 11:12 Chest 2V [CR] Stat 09/19/20 11:15 HYDROmorphone [Dilaudid] 0.5 mg IVPUSH Q2H PRN 09/19/20 12:00 Meropenem [Merrem] 1 gm Sodium Chloride 0.9% [Normal Saline] 100 ml IV Q8H 09/19/20 12:30 Linezolid [Zyvox] 600 mg Premix Bag 1 bag IV Q12H 09/20/20 05:00 BASIC METABOLIC PANEL,BMP [CHEM] Timed CBC WITH AUTO DIFF [HEME] Timed MAGNESIUM [CHEM] Timed - Plan Plan:: ASSESSMENT AND PLAN NEUTROPENIC FEVER-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 Stable since admission with only low-grade temperature elevations, neutrophil count remains extremely low. -2 sets of blood cultures pending -CBC with differential in a.m. -broad-spectrum antibiotic therapy; Zyvox and meropenem -Discontinue vancomycin and cefepime because of probable allergic rash -Tylenol as needed for fever -Saline lock IV -Granulocyte colony-stimulating factor-5 mcg/kg daily HAIRY CELL LEUKEMIA-status post recent course of chemotherapy, complicated by neutropenia VANCOMYCIN FLUSHING SYNDROME -IV Benadryl and Pepcid -Change antibiotic therapy as above MAINTENANCE ISSUES -DVT prophylaxis; SCUDs -GI prophylaxis; not indicated -Victor catheter; not indicated -Nutrition; regular diet -Nicotine dependence; not required CODE STATUS-FULL CODE ADMISSION STATUS-patient will be admitted to inpatient status, expect at least a 2 night hospital stay for evaluation and management of problems as outlined above. At the time of this admission I do not reasonably expected evaluation and management of this problem will require more than a 96 hour hospital stay. DISPOSITION-anticipate discharge to home after the hospital stay. PRIMARY CARE PROVIDER-Dr. Hastings
[2020-09-19] MEDS: Meropenem 1 GM in Sodium Chloride 0.9% 100 ML IV SCH ×2 (12:16→19:43)
--- NOTE | 2020-09-19 12:31 | CR ---
CHEST: 2 view CLINICAL HISTORY:Neutropenia, cough COMPARISON:2016 FINDINGS: There is mild prominence of the perihilar bronchial markings. No infiltrate effusion or pneumothorax is seen. Heart and pulmonary vascularity are normal. Impression: Prominent perihilar bronchial markings may represent a bronchitis or bronchiolitis. This may be acute or chronic.
[2020-09-19] MEDS: Linezolid 600 MG in Premix Bag 1 BAG IV SCH (13:06)
[2020-09-19] MEDS: HYDROmorphone 0.5 MG/0.5 ML Syringe IVPUSH PRN ×2 (15:39→21:43)
[2020-09-19] MEDS: Pantoprazole 40 MG Tab.CR PO SCH (21:43)
[2020-09-20] MEDS: Linezolid 600 MG in Premix Bag 1 BAG IV SCH ×2 (00:29→12:38)
[2020-09-20] MEDS: Acetaminophen 325 MG Tab PO PRN ×5 (00:36→17:20)
[2020-09-20] MEDS: diphenhydrAMINE 25 MG Cap PO PRN ×3 (02:05→22:26)
[2020-09-20] MEDS: Meropenem 1 GM in Sodium Chloride 0.9% 100 ML IV SCH ×3 (04:23→20:30)
[2020-09-20] MEDS: Ibuprofen 400 MG Tab PO PRN ×3 (05:33→20:52)
[2020-09-20] MEDS: Magnesium Oxide 400 MG Tab PO SCH ×2 (09:48→20:46)
[2020-09-20] MEDS ORDERED: Magnesium Hydroxide 400 MG/5 ML Susp 30 ML Cup PO PRN (14:03)
[2020-09-20] MEDS: Ondansetron 4 MG Tab.DIS PO PRN ×2 (14:10→18:00)
[2020-09-20] MEDS ORDERED: Bisacodyl 5 MG Tab PO ONE (14:15)
--- NOTE | 2020-09-20 17:45 | PCM.PN ---
- General Info Date of Service: 09/20/20 Subjective Update: Mr. Nguyen continues to experience absolute neutropenia. Muscle and joint pain has improved over the past 2 days. Vital signs have been stable and he has had only low-grade temperature elevations. Functional Status: Reports: Tolerating Diet, Urinating - Review of Systems General: Reports: Fever, Weakness, Fatigue. Denies: Chills Pulmonary: Reports: No Symptoms Cardiovascular: Reports: No Symptoms Gastrointestinal: Reports: Constipation. Denies: Abdominal Pain, Difficulty Swallowing, Hematochezia, Melena, Nausea, Vomiting Genitourinary: Reports: No Symptoms - Patient Data Vitals - Most Recent: Last Vital Signs Temp 99.5 F 09/20/20 17:20 Pulse 90 09/20/20 14:46 Resp 16 09/20/20 14:46 BP 126/57 L 09/20/20 14:46 Pulse Ox 96 09/20/20 14:46 Weight - Most Recent: 190 lb 6.4 oz I&O - Last 24 Hours: Intake & Output 09/20/20 09/20/20 09/20/20 06:59 14:59 22:59 Intake Total 300 640 Output Total 1 Balance 300 640 -1 Lab Results Last 24 Hours: Laboratory Results - last 24 hr 09/20/20 09/20/20 Range/Units 06:00 06:00 WBC 0.5 L* (4.5-11.0) K/uL RBC 3.36 L (4.30-5.90) M/uL Hgb 10.3 L (12.0-15.0) g/dL Hct 29.6 L (40.0-54.0) % MCV 88 (80-98) fL MCH 31 (27-31) pg MCHC 35 (32-36) % Plt Count 71 L (150-400) K/uL Add Manual Diff Yes Neutrophils % (Manual) 35 L (36-66) % Band Neutrophils % 9 (5-11) % Lymphocytes % (Manual) 43 (24-44) % Monocytes % (Manual) 3 (2-6) % Eosinophils % (Manual) 7 H (2-4) % Basophils % (Manual) 3 H (0-1) % Sodium 139 L (140-148) mmol/L Potassium 3.6 (3.6-5.2) mmol/L Chloride 104 (100-108) mmol/L Carbon Dioxide 27 (21-32) mmol/L Anion Gap 11.6 (5.0-14.0) mmol/L BUN 11 (7-18) mg/dL Creatinine 1.0 (0.8-1.3) mg/dL Est Cr Clr Drug Dosing 85.82 mL/min Estimated GFR (MDRD) > 60 (>60) Glucose 97 (74-106) mg/dL Calcium 7.5 L (8.5-10.1) mg/dL Magnesium 1.8 (1.8-2.4) mg/dL Kash Results Last 24 Hours: Microbiology 09/16/20 17:40 Aerobic Blood Culture - Preliminary Blood - Arm, Left NO GROWTH AFTER 3 DAYS Anaerobic Blood Culture - Preliminary NO GROWTH AFTER 3 DAYS 09/16/20 17:30 Aerobic Blood Culture - Preliminary Blood - Arm, Right NO GROWTH AFTER 3 DAYS Anaerobic Blood Culture - Preliminary NO GROWTH AFTER 3 DAYS Med Orders - Current: Current Medications Acetaminophen (Acetaminophen 325 Mg Tab) 650 mg PO Q4H PRN PRN Reason: Pain (Mild 1-3)/fever Last Admin: 09/20/20 17:20 Dose: 650 mg Documented by: Hydrocodone Bitart/Acetaminophen (Acetaminophen/Hydrocodone 325-5 Mg Tab) 1 tab PO Q4H PRN PRN Reason: Pain Last Admin: 09/19/20 03:31 Dose: 1 tab Documented by: Calcium Carbonate/Glycine (Calcium Carbonate 500 Mg Tab.Chew) 1,000 mg PO Q2H PRN PRN Reason: Indigestion Last Admin: 09/16/20 21:51 Dose: 1,000 mg Documented by: Diphenhydramine HCl (Diphenhydramine 25 Mg Cap) 50 mg PO Q6H PRN PRN Reason: Itching Last Admin: 09/20/20 11:48 Dose: 50 mg Documented by: Hydromorphone HCl (Hydromorphone 0.5 Mg/0.5 Ml Syringe) 0.5 mg IVPUSH Q2H PRN PRN Reason: Pain (severe 7-10) Last Admin: 09/19/20 21:43 Dose: 0.5 mg Documented by: Linezolid 600 mg/ Premix 300 mls @ 300 mls/hr IV Q12H [facility] Last Admin: 09/20/20 12:38 Dose: 300 mls/hr Documented by: Meropenem 1 gm/ Sodium (Chloride) 100 mls @ 200 mls/hr IV Q8H [facility] Last Admin: 09/20/20 11:53 Dose: 200 mls/hr Documented by: Ibuprofen (Ibuprofen 400 Mg Tab) 400 mg PO Q6H PRN PRN Reason: Fever Last Admin: 09/20/20 11:48 Dose: 400 mg Documented by: Magnesium Hydroxide (Magnesium Hydroxide 400 Mg/5 Ml Susp 30 Ml Cup) 30 ml PO Q4H PRN PRN Reason: Constipation Magnesium Oxide (Magnesium Oxide 400 Mg Tab) 400 mg PO BID [facility] Last Admin: 09/20/20 09:48 Dose: 400 mg Documented by: Ondansetron HCl (Ondansetron 4 Mg Tab.Dis) 4 mg PO Q4H PRN PRN Reason: Nausea/Vomiting Last Admin: 09/20/20 14:10 Dose: 4 mg Documented by: Pantoprazole Sodium (Pantoprazole 40 Mg Tab.Cr) 40 mg PO BEDTIME [facility] Last Admin: 09/19/20 21:43 Dose: 40 mg Documented by: Polyethylene Glycol (Polyethylene Glycol 3350 Powder 17 Gm Packet) 17 gm PO DAILY PRN PRN Reason: Constipation Last Admin: 09/20/20 08:45 Dose: 17 gm Documented by: Prochlorperazine Maleate (Prochlorperazine 10 Mg Tab) 10 mg PO Q6H PRN PRN Reason: Nausea/Vomiting Last Admin: 09/17/20 07:24 Dose: 10 mg Documented by: Sodium Chloride (Sodium Chloride 0.9% 10 Ml Syringe) 10 ml FLUSH ASDIRECTED PRN PRN Reason: Keep Vein Open Tbo-Filgrastim (Tbo-Filgrastim 480 Mcg/0.8 Ml Syringe) 420 mcg SUBCUT DAILY [facility] Last Admin: 09/20/20 09:51 Dose: 420 mcg Documented by: Discontinued Medications Hydrocodone Bitart/Acetaminophen (Acetaminophen/Hydrocodone 325-10 Mg Tab) 1 tab PO Q4H PRN PRN Reason: Pain Bisacodyl (Bisacodyl 5 Mg Tab) 10 mg PO ONETIME ONE Stop: 09/20/20 14:16 Last Admin: 09/20/20 14:59 Dose: 10 mg Documented by: Diphenhydramine HCl (Diphenhydramine 50 Mg/Ml Sdv) 50 mg IVPUSH ONETIME ONE Stop: 09/19/20 11:01 Last Admin: 09/19/20 11:36 Dose: 50 mg Documented by: Famotidine (Famotidine 20 Mg/2 Ml Sdv) 20 mg IVPUSH ONETIME ONE Stop: 09/19/20 11:01 Last Admin: 09/19/20 11:40 Dose: 20 mg Documented by: Hydromorphone HCl (Hydromorphone 0.5 Mg/0.5 Ml Syringe) 0.5 mg IVPUSH ONETIME ONE Stop: 09/19/20 10:21 Last Admin: 09/19/20 10:15 Dose: 0.5 mg Documented by: Sodium Chloride (Normal Saline) 1,000 mls @ 125 mls/hr IV ASDIRECTED [facility] Last Admin: 09/17/20 11:28 Dose: 125 mls/hr Documented by: Cefepime HCl 2 gm/ Sodium (Chloride) 50 mls @ 100 mls/hr IV Q8H [facility] Last Admin: 09/19/20 10:40 Dose: Not Given Documented by: Vancomycin HCl 1.75 gm/ Sodium (Chloride) 250 mls @ 166.667 mls/hr IV ONETIME ONE Stop: 09/16/20 19:59 Last Admin: 09/16/20 18:43 Dose: 166.667 mls/hr Documented by: Vancomycin HCl 1.25 gm/ Sodium (Chloride) 250 mls @ 166.667 mls/hr IV Q12H [facility] Stop: 09/17/20 10:30 Last Admin: 09/17/20 08:06 Dose: 166.667 mls/hr Documented by: Vancomycin HCl 1.25 gm/ Sodium (Chloride) 250 mls @ 166.667 mls/hr IV Q12H [facility] Stop: 09/19/20 10:00 Last Admin: 09/19/20 08:25 Dose: 166.667 mls/hr Documented by: Vancomycin HCl 1.25 gm/ Sodium (Chloride) 250 mls @ 167 mls/hr IV Q8H [facility] Ondansetron HCl (Ondansetron 4 Mg/2 Ml Sdv) 4 mg IV Q4H PRN PRN Reason: Nausea/Vomiting Last Admin: 09/17/20 10:14 Dose: 4 mg Documented by: Pantoprazole Sodium (Pantoprazole 40 Mg Vial) 40 mg IVPUSH Q24H [facility] Last Admin: 09/16/20 23:33 Dose: 40 mg Documented by: Tbo-Filgrastim (Tbo-Filgrastim 300 Mcg/0.5 Ml Syringe) 420 mcg SUBCUT DAILY [facility] Last Admin: 09/17/20 14:51 Dose: 420 mcg Documented by: Vancomycin HCl (Vancomycin 1 Gm Sdv) 1 gm IV .PHARMACY TO DOSE [facility] Stop: 09/16/20 18:01 - Exam General: Alert, Oriented, Cooperative, Moderate Distress Lungs: Clear to Auscultation, Normal Respiratory Effort Cardiovascular: Regular Rate, Regular Rhythm, No Murmurs GI/Abdominal Exam: Soft, Non-Tender, No Organomegaly, No Distention Extremities: Non-Tender, No Pedal Edema - Patient Data Lab Results Last 24 hrs: Laboratory Results - last 24 hr 09/20/20 09/20/20 Range/Units 06:00 06:00 WBC 0.5 L* (4.5-11.0) K/uL RBC 3.36 L (4.30-5.90) M/uL Hgb 10.3 L (12.0-15.0) g/dL Hct 29.6 L (40.0-54.0) % MCV 88 (80-98) fL MCH 31 (27-31) pg MCHC 35 (32-36) % Plt Count 71 L (150-400) K/uL Add Manual Diff Yes Neutrophils % (Manual) 35 L (36-66) % Band Neutrophils % 9 (5-11) % Lymphocytes % (Manual) 43 (24-44) % Monocytes % (Manual) 3 (2-6) % Eosinophils % (Manual) 7 H (2-4) % Basophils % (Manual) 3 H (0-1) % Sodium 139 L (140-148) mmol/L Potassium 3.6 (3.6-5.2) mmol/L Chloride 104 (100-108) mmol/L Carbon Dioxide 27 (21-32) mmol/L Anion Gap 11.6 (5.0-14.0) mmol/L BUN 11 (7-18) mg/dL Creatinine 1.0 (0.8-1.3) mg/dL Est Cr Clr Drug Dosing 85.82 mL/min Estimated GFR (MDRD) > 60 (>60) Glucose 97 (74-106) mg/dL Calcium 7.5 L (8.5-10.1) mg/dL Magnesium 1.8 (1.8-2.4) mg/dL Result Diagrams: 09/20/20 06:00 09/20/20 06:00 Kash Results Last 24 hrs: Microbiology 09/16/20 17:40 Aerobic Blood Culture - Preliminary Blood - Arm, Left NO GROWTH AFTER 3 DAYS Anaerobic Blood Culture - Preliminary NO GROWTH AFTER 3 DAYS 09/16/20 17:30 Aerobic Blood Culture - Preliminary Blood - Arm, Right NO GROWTH AFTER 3 DAYS Anaerobic Blood Culture - Preliminary NO GROWTH AFTER 3 DAYS Sepsis Event Note - Evaluation Sepsis Screening Result: No Definite Risk - Focused Exam Vital Signs: Vital Signs Temp Temp Pulse Resp BP Pulse Ox 09/20/20 17:20 99.5 F 09/20/20 14:46 98.9 F 90 16 126/57 L 96 09/20/20 13:58 98.9 F 09/20/20 13:28 99.1 F 09/20/20 12:48 98.3 F 09/20/20 11:48 98.7 F 09/20/20 11:00 98.7 F 94 16 115/56 L 94 L 09/20/20 09:15 96.6 F L 09/20/20 08:45 99.0 F 09/20/20 07:04 99.0 F 89 16 127/58 L 95 - Problem List Review Problem List Initiated/Reviewed/Updated: Yes - My Orders Last 24 Hours: My Active Orders 09/20/20 14:03 Magnesium Hydroxide [Milk of Magnesia] 30 ml PO Q4H PRN 09/21/20 05:00 CBC WITH AUTO DIFF [HEME] Timed - Plan Plan:: ASSESSMENT AND PLAN NEUTROPENIC FEVER-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 Stable since admission with only low-grade temperature elevations, neutrophil count remains extremely low. -2 sets of blood cultures pending -CBC with differential in a.m. -broad-spectrum antibiotic therapy; Zyvox and meropenem -Tylenol as needed for fever -Saline lock IV -Granulocyte colony-stimulating factor-5 mcg/kg daily HAIRY CELL LEUKEMIA-status post recent course of chemotherapy, complicated by neutropenia VANCOMYCIN FLUSHING SYNDROME -IV Benadryl and Pepcid -Change antibiotic therapy as above MAINTENANCE ISSUES -DVT prophylaxis; SCUDs -GI prophylaxis; not indicated -Victor catheter; not indicated -Nutrition; regular diet -Nicotine dependence; not required CODE STATUS-FULL CODE ADMISSION STATUS-patient will be admitted to inpatient status, expect at least a 2 night hospital stay for evaluation and management of problems as outlined above. At the time of this admission I do not reasonably expected evaluation and management of this problem will require more than a 96 hour hospital stay. DISPOSITION-anticipate discharge to home after the hospital stay. PRIMARY CARE PROVIDER-Dr. Hastings
[2020-09-20] MEDS: HYDROmorphone 0.5 MG/0.5 ML Syringe IVPUSH PRN ×2 (17:56→20:35)
[2020-09-20] MEDS: Pantoprazole 40 MG Tab.CR PO SCH (20:46)
[2020-09-21] MEDS: Linezolid 600 MG in Premix Bag 1 BAG IV SCH ×2 (01:34→12:36)
[2020-09-21] MEDS: Acetaminophen 325 MG Tab PO PRN ×2 (03:05→14:54)
[2020-09-21] MEDS: Meropenem 1 GM in Sodium Chloride 0.9% 100 ML IV SCH ×3 (03:06→20:19)
[2020-09-21] MEDS: HYDROmorphone 0.5 MG/0.5 ML Syringe IVPUSH PRN ×4 (08:48→21:56)
[2020-09-21] MEDS: Magnesium Oxide 400 MG Tab PO SCH ×2 (08:48→20:24)
[2020-09-21] MEDS: Ibuprofen 400 MG Tab PO PRN ×2 (09:21→17:27)
--- NOTE | 2020-09-21 11:07 | PCM.PN ---
- General Info Date of Service: 09/21/20 Subjective Update: Mr. Nguyen has been stable over the last 24 hours, continues to experience low- grade temperature elevations. Vital signs have otherwise been stable. Rash does appear to be clearing. White blood cell count improved, neutrophil count remains very low. Functional Status: Reports: Urinating - Review of Systems General: Reports: Fever, Weakness, Fatigue, Chills Pulmonary: Reports: No Symptoms Cardiovascular: Reports: No Symptoms Gastrointestinal: Reports: No Symptoms Genitourinary: Reports: No Symptoms Skin: Reports: Rash - Patient Data Vitals - Most Recent: Last Vital Signs Temp 100.4 F 09/21/20 09:21 Pulse 93 09/21/20 08:01 Resp 16 09/21/20 08:01 BP 128/69 09/21/20 08:01 Pulse Ox 93 L 09/21/20 08:01 Weight - Most Recent: 190 lb 6.4 oz I&O - Last 24 Hours: Intake & Output 09/20/20 09/21/20 09/21/20 22:59 06:59 14:59 Intake Total 350 350 Output Total 1 Balance 349 350 Lab Results Last 24 Hours: Laboratory Results - last 24 hr 09/21/20 Range/Units 05:30 WBC 0.9 L* (4.5-11.0) K/uL RBC 3.33 L (4.30-5.90) M/uL Hgb 10.1 L (12.0-15.0) g/dL Hct 29.5 L (40.0-54.0) % MCV 89 (80-98) fL MCH 30 (27-31) pg MCHC 34 (32-36) % Plt Count 77 L (150-400) K/uL Add Manual Diff Yes Neutrophils % (Manual) 22 L (36-66) % Band Neutrophils % 1 L (5-11) % Lymphocytes % (Manual) 74 H (24-44) % Monocytes % (Manual) 3 (2-6) % Kash Results Last 24 Hours: Microbiology 09/16/20 17:40 Aerobic Blood Culture - Preliminary Blood - Arm, Left NO GROWTH AFTER 4 DAYS Anaerobic Blood Culture - Preliminary NO GROWTH AFTER 4 DAYS 09/16/20 17:30 Aerobic Blood Culture - Preliminary Blood - Arm, Right NO GROWTH AFTER 4 DAYS Anaerobic Blood Culture - Preliminary NO GROWTH AFTER 4 DAYS Med Orders - Current: Current Medications Acetaminophen (Acetaminophen 325 Mg Tab) 650 mg PO Q4H PRN PRN Reason: Pain (Mild 1-3)/fever Last Admin: 09/21/20 03:05 Dose: 650 mg Documented by: Hydrocodone Bitart/Acetaminophen (Acetaminophen/Hydrocodone 325-5 Mg Tab) 1 tab PO Q4H PRN PRN Reason: Pain Last Admin: 09/19/20 03:31 Dose: 1 tab Documented by: Calcium Carbonate/Glycine (Calcium Carbonate 500 Mg Tab.Chew) 1,000 mg PO Q2H PRN PRN Reason: Indigestion Last Admin: 09/16/20 21:51 Dose: 1,000 mg Documented by: Diphenhydramine HCl (Diphenhydramine 25 Mg Cap) 50 mg PO Q6H PRN PRN Reason: Itching Last Admin: 09/20/20 22:26 Dose: 50 mg Documented by: Furosemide (Furosemide 40 Mg/4 Ml Vial) 20 mg IVPUSH NOW ONE Stop: 09/21/20 11:01 Hydromorphone HCl (Hydromorphone 0.5 Mg/0.5 Ml Syringe) 0.5 mg IVPUSH Q2H PRN PRN Reason: Pain (severe 7-10) Last Admin: 09/21/20 08:48 Dose: 0.5 mg Documented by: Linezolid 600 mg/ Premix 300 mls @ 300 mls/hr IV Q12H [facility] Last Admin: 09/21/20 01:34 Dose: 300 mls/hr Documented by: Meropenem 1 gm/ Sodium (Chloride) 100 mls @ 200 mls/hr IV Q8H [facility] Last Admin: 09/21/20 03:06 Dose: 200 mls/hr Documented by: Ibuprofen (Ibuprofen 400 Mg Tab) 400 mg PO Q6H PRN PRN Reason: Fever Last Admin: 09/21/20 09:21 Dose: 400 mg Documented by: Magnesium Hydroxide (Magnesium Hydroxide 400 Mg/5 Ml Susp 30 Ml Cup) 30 ml PO Q4H PRN PRN Reason: Constipation Magnesium Oxide (Magnesium Oxide 400 Mg Tab) 400 mg PO BID [facility] Last Admin: 09/21/20 08:48 Dose: 400 mg Documented by: Ondansetron HCl (Ondansetron 4 Mg Tab.Dis) 4 mg PO Q4H PRN PRN Reason: Nausea/Vomiting Last Admin: 09/20/20 18:00 Dose: 4 mg Documented by: Pantoprazole Sodium (Pantoprazole 40 Mg Tab.Cr) 40 mg PO BEDTIME [facility] Last Admin: 09/20/20 20:46 Dose: 40 mg Documented by: Polyethylene Glycol (Polyethylene Glycol 3350 Powder 17 Gm Packet) 17 gm PO DAILY PRN PRN Reason: Constipation Last Admin: 09/20/20 08:45 Dose: 17 gm Documented by: Prochlorperazine Maleate (Prochlorperazine 10 Mg Tab) 10 mg PO Q6H PRN PRN Reason: Nausea/Vomiting Last Admin: 09/17/20 07:24 Dose: 10 mg Documented by: Sodium Chloride (Sodium Chloride 0.9% 10 Ml Syringe) 10 ml FLUSH ASDIRECTED PRN PRN Reason: Keep Vein Open Tbo-Filgrastim (Tbo-Filgrastim 480 Mcg/0.8 Ml Syringe) 420 mcg SUBCUT DAILY [facility] Last Admin: 09/21/20 08:48 Dose: 420 mcg Documented by: Discontinued Medications Hydrocodone Bitart/Acetaminophen (Acetaminophen/Hydrocodone 325-10 Mg Tab) 1 tab PO Q4H PRN PRN Reason: Pain Bisacodyl (Bisacodyl 5 Mg Tab) 10 mg PO ONETIME ONE Stop: 09/20/20 14:16 Last Admin: 09/20/20 14:59 Dose: 10 mg Documented by: Diphenhydramine HCl (Diphenhydramine 50 Mg/Ml Sdv) 50 mg IVPUSH ONETIME ONE Stop: 09/19/20 11:01 Last Admin: 09/19/20 11:36 Dose: 50 mg Documented by: Famotidine (Famotidine 20 Mg/2 Ml Sdv) 20 mg IVPUSH ONETIME ONE Stop: 09/19/20 11:01 Last Admin: 09/19/20 11:40 Dose: 20 mg Documented by: Hydromorphone HCl (Hydromorphone 0.5 Mg/0.5 Ml Syringe) 0.5 mg IVPUSH ONETIME ONE Stop: 09/19/20 10:21 Last Admin: 09/19/20 10:15 Dose: 0.5 mg Documented by: Sodium Chloride (Normal Saline) 1,000 mls @ 125 mls/hr IV ASDIRECTED [facility] Last Admin: 09/17/20 11:28 Dose: 125 mls/hr Documented by: Cefepime HCl 2 gm/ Sodium (Chloride) 50 mls @ 100 mls/hr IV Q8H [facility] Last Admin: 09/19/20 10:40 Dose: Not Given Documented by: Vancomycin HCl 1.75 gm/ Sodium (Chloride) 250 mls @ 166.667 mls/hr IV ONETIME ONE Stop: 09/16/20 19:59 Last Admin: 09/16/20 18:43 Dose: 166.667 mls/hr Documented by: Vancomycin HCl 1.25 gm/ Sodium (Chloride) 250 mls @ 166.667 mls/hr IV Q12H [facility] Stop: 09/17/20 10:30 Last Admin: 09/17/20 08:06 Dose: 166.667 mls/hr Documented by: Vancomycin HCl 1.25 gm/ Sodium (Chloride) 250 mls @ 166.667 mls/hr IV Q12H [facility] Stop: 09/19/20 10:00 Last Admin: 09/19/20 08:25 Dose: 166.667 mls/hr Documented by: Vancomycin HCl 1.25 gm/ Sodium (Chloride) 250 mls @ 167 mls/hr IV Q8H [facility] Ondansetron HCl (Ondansetron 4 Mg/2 Ml Sdv) 4 mg IV Q4H PRN PRN Reason: Nausea/Vomiting Last Admin: 09/17/20 10:14 Dose: 4 mg Documented by: Pantoprazole Sodium (Pantoprazole 40 Mg Vial) 40 mg IVPUSH Q24H [facility] Last Admin: 09/16/20 23:33 Dose: 40 mg Documented by: Tbo-Filgrastim (Tbo-Filgrastim 300 Mcg/0.5 Ml Syringe) 420 mcg SUBCUT DAILY [facility] Last Admin: 09/17/20 14:51 Dose: 420 mcg Documented by: Vancomycin HCl (Vancomycin 1 Gm Sdv) 1 gm IV .PHARMACY TO DOSE [facility] Stop: 09/16/20 18:01 - Exam General: Alert, Oriented, Cooperative, Moderate Distress Lungs: Clear to Auscultation, Normal Respiratory Effort Cardiovascular: Regular Rate, Regular Rhythm, No Murmurs GI/Abdominal Exam: Soft, Non-Tender, No Organomegaly, No Distention Extremities: Non-Tender, Pedal Edema - Patient Data Lab Results Last 24 hrs: Laboratory Results - last 24 hr 09/21/20 Range/Units 05:30 WBC 0.9 L* (4.5-11.0) K/uL RBC 3.33 L (4.30-5.90) M/uL Hgb 10.1 L (12.0-15.0) g/dL Hct 29.5 L (40.0-54.0) % MCV 89 (80-98) fL MCH 30 (27-31) pg MCHC 34 (32-36) % Plt Count 77 L (150-400) K/uL Add Manual Diff Yes Neutrophils % (Manual) 22 L (36-66) % Band Neutrophils % 1 L (5-11) % Lymphocytes % (Manual) 74 H (24-44) % Monocytes % (Manual) 3 (2-6) % Result Diagrams: 09/21/20 05:30 09/20/20 06:00 Kash Results Last 24 hrs: Microbiology 09/16/20 17:40 Aerobic Blood Culture - Preliminary Blood - Arm, Left NO GROWTH AFTER 4 DAYS Anaerobic Blood Culture - Preliminary NO GROWTH AFTER 4 DAYS 09/16/20 17:30 Aerobic Blood Culture - Preliminary Blood - Arm, Right NO GROWTH AFTER 4 DAYS Anaerobic Blood Culture - Preliminary NO GROWTH AFTER 4 DAYS Sepsis Event Note - Evaluation Sepsis Screening Result: No Definite Risk - Focused Exam Vital Signs: Vital Signs Temp Temp Pulse Resp BP BP Pulse Ox 09/21/20 09:21 100.4 F 09/21/20 08:01 100.4 F 93 16 128/69 93 L 09/21/20 03:05 100.4 F 09/21/20 03:00 100.4 F 100 16 105/47 L 93 L 09/20/20 23:24 98.4 F 97 16 100/45 L 96 - Problem List Review Problem List Initiated/Reviewed/Updated: Yes - My Orders Last 24 Hours: My Active Orders 09/20/20 14:03 Magnesium Hydroxide [Milk of Magnesia] 30 ml PO Q4H PRN 09/21/20 11:00 Furosemide [Lasix] 20 mg IVPUSH NOW ONE 09/22/20 05:00 BASIC METABOLIC PANEL,BMP [CHEM] Timed CBC WITH AUTO DIFF [HEME] Timed - Plan Plan:: ASSESSMENT AND PLAN NEUTROPENIC FEVER-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 Stable since admission with only low-grade temperature elevations, neutrophil count remains extremely low. -2 sets of blood cultures pending -CBC with differential in a.m. -broad-spectrum antibiotic therapy; Zyvox and meropenem -Tylenol as needed for fever -Saline lock IV -Granulocyte colony-stimulating factor-5 mcg/kg daily HAIRY CELL LEUKEMIA-status post recent course of chemotherapy, complicated by neutropenia CHEMOTHERAPY RASH-associated with edema both upper extremities. Rash does appear to be fading, especially on the head neck -Furosemide 20 mg IV today MAINTENANCE ISSUES -DVT prophylaxis; SCUDs -GI prophylaxis; not indicated -Victor catheter; not indicated -Nutrition; regular diet -Nicotine dependence; not required CODE STATUS-FULL CODE ADMISSION STATUS-patient will be admitted to inpatient status, expect at least a 2 night hospital stay for evaluation and management of problems as outlined above. At the time of this admission I do not reasonably expected evaluation and management of this problem will require more than a 96 hour hospital stay. DISPOSITION-anticipate discharge to home after the hospital stay. PRIMARY CARE PROVIDER-Dr. Hastings
[2020-09-21] MEDS ORDERED: Furosemide 20 MG/2 ML VIAL IVPUSH ONE (11:15)
[2020-09-21] MEDS: Ondansetron 4 MG Tab.DIS PO PRN (11:32)
[2020-09-21] MEDS: Pantoprazole 40 MG Tab.CR PO SCH (20:27)
[2020-09-21] MEDS: diphenhydrAMINE 25 MG Cap PO PRN (21:55)
[2020-09-22] MEDS: Linezolid 600 MG in Premix Bag 1 BAG IV SCH ×2 (00:11→13:04)
[2020-09-22] MEDS: Ibuprofen 400 MG Tab PO PRN ×3 (00:11→21:58)
[2020-09-22] MEDS: Meropenem 1 GM in Sodium Chloride 0.9% 100 ML IV SCH ×3 (03:23→20:40)
[2020-09-22] MEDS ORDERED: Furosemide 20 MG/2 ML VIAL IVPUSH ONE (08:45)
[2020-09-22] MEDS: Magnesium Oxide 400 MG Tab PO SCH ×2 (09:50→20:47)
[2020-09-22] MEDS: HYDROmorphone 0.5 MG/0.5 ML Syringe IVPUSH PRN ×4 (10:39→19:31)
[2020-09-22] MEDS ORDERED: Lidocaine 1% 2 ML ONE (11:18)
[2020-09-22] MEDS: diphenhydrAMINE 25 MG Cap PO PRN (13:08)
--- NOTE | 2020-09-22 14:41 | PCM.PN ---
- General Info Date of Service: 09/22/20 Subjective Update: Mr. Ngyuen has felt somewhat improved over the last 24 hours with more energy and improved appetite. Low-grade fevers seem to be improved and vital signs have be en stable. Swelling improved with dose of IV furosemide yesterday. Rash appears to be fading especially on the head and neck Functional Status: Reports: Tolerating Diet, Ambulating, Urinating - Review of Systems General: Reports: Weakness, Fatigue. Denies: Fever, Chills Pulmonary: Reports: No Symptoms Cardiovascular: Reports: No Symptoms Gastrointestinal: Reports: No Symptoms Genitourinary: Reports: No Symptoms Skin: Reports: Rash - Patient Data Vitals - Most Recent: Last Vital Signs Temp 98.2 F 09/22/20 13:10 Pulse 89 09/22/20 13:10 Resp 12 09/22/20 13:10 BP 133/76 09/22/20 13:10 Pulse Ox 99 09/22/20 13:10 Weight - Most Recent: 188 lb 6.4 oz I&O - Last 24 Hours: Intake & Output 09/21/20 09/22/20 09/22/20 22:59 06:59 14:59 Intake Total 340 300 980 Output Total 2300 Balance 340 300 -1320 Lab Results Last 24 Hours: Laboratory Results - last 24 hr 09/22/20 09/22/20 Range/Units 04:05 04:05 WBC 1.4 L (4.5-11.0) K/uL RBC 3.17 L (4.30-5.90) M/uL Hgb 9.6 L (12.0-15.0) g/dL Hct 28.2 L (40.0-54.0) % MCV 89 (80-98) fL MCH 30 (27-31) pg MCHC 34 (32-36) % Plt Count 77 L (150-400) K/uL Add Manual Diff Yes Neutrophils % (Manual) 15 L (36-66) % Band Neutrophils % 8 (5-11) % Lymphocytes % (Manual) 64 H (24-44) % Monocytes % (Manual) 8 H (2-6) % Eosinophils % (Manual) 5 H (2-4) % Sodium 143 (140-148) mmol/L Potassium 3.7 (3.6-5.2) mmol/L Chloride 103 (100-108) mmol/L Carbon Dioxide 32 (21-32) mmol/L Anion Gap 8.4 (5.0-14.0) mmol/L BUN 10 (7-18) mg/dL Creatinine 1.0 (0.8-1.3) mg/dL Est Cr Clr Drug Dosing 85.82 mL/min Estimated GFR (MDRD) > 60 (>60) Glucose 87 (74-106) mg/dL Calcium 7.6 L (8.5-10.1) mg/dL Kash Results Last 24 Hours: Microbiology 09/16/20 17:40 Aerobic Blood Culture - Final Blood - Arm, Left NO GROWTH AFTER 5 DAYS Anaerobic Blood Culture - Final NO GROWTH AFTER 5 DAYS 09/16/20 17:30 Aerobic Blood Culture - Final Blood - Arm, Right NO GROWTH AFTER 5 DAYS Anaerobic Blood Culture - Final NO GROWTH AFTER 5 DAYS Med Orders - Current: Current Medications Acetaminophen (Acetaminophen 325 Mg Tab) 650 mg PO Q4H PRN PRN Reason: Pain (Mild 1-3)/fever Last Admin: 09/21/20 14:54 Dose: 650 mg Documented by: Hydrocodone Bitart/Acetaminophen (Acetaminophen/Hydrocodone 325-5 Mg Tab) 1 tab PO Q4H PRN PRN Reason: Pain Last Admin: 09/19/20 03:31 Dose: 1 tab Documented by: Calcium Carbonate/Glycine (Calcium Carbonate 500 Mg Tab.Chew) 1,000 mg PO Q2H PRN PRN Reason: Indigestion Last Admin: 09/16/20 21:51 Dose: 1,000 mg Documented by: Diphenhydramine HCl (Diphenhydramine 25 Mg Cap) 50 mg PO Q6H PRN PRN Reason: Itching Last Admin: 09/22/20 13:08 Dose: 50 mg Documented by: Hydromorphone HCl (Hydromorphone 0.5 Mg/0.5 Ml Syringe) 0.5 mg IVPUSH Q2H PRN PRN Reason: Pain (severe 7-10) Last Admin: 09/22/20 13:09 Dose: 0.5 mg Documented by: Linezolid 600 mg/ Premix 300 mls @ 300 mls/hr IV Q12H [facility] Last Admin: 09/22/20 13:04 Dose: 300 mls/hr Documented by: Meropenem 1 gm/ Sodium (Chloride) 100 mls @ 200 mls/hr IV Q8H PENDING [facility]ALE TO [facility] Last Admin: 09/22/20 11:54 Dose: 200 mls/hr Documented by: Ibuprofen (Ibuprofen 400 Mg Tab) 400 mg PO Q6H PRN PRN Reason: Fever Last Admin: 09/22/20 10:29 Dose: 400 mg Documented by: Magnesium Hydroxide (Magnesium Hydroxide 400 Mg/5 Ml Susp 30 Ml Cup) 30 ml PO Q4H PRN PRN Reason: Constipation Magnesium Oxide (Magnesium Oxide 400 Mg Tab) 400 mg PO BID PENDING SALE TO [facility] Last Admin: 09/22/20 09:50 Dose: 400 mg Documented by: Ondansetron HCl (Ondansetron 4 Mg Tab.Dis) 4 mg PO Q4H PRN PRN Reason: Nausea/Vomiting Last Admin: 09/21/20 11:32 Dose: 4 mg Documented by: Pantoprazole Sodium (Pantoprazole 40 Mg Tab.Cr) 40 mg PO BEDTIME [facility] TO [facility] Last Admin: 09/21/20 20:27 Dose: 40 mg Documented by: Polyethylene Glycol (Polyethylene Glycol 3350 Powder 17 Gm Packet) 17 gm PO DAILY PRN PRN Reason: Constipation Last Admin: 09/20/20 08:45 Dose: 17 gm Documented by: Prochlorperazine Maleate (Prochlorperazine 10 Mg Tab) 10 mg PO Q6H PRN PRN Reason: Nausea/Vomiting Last Admin: 09/17/20 07:24 Dose: 10 mg Documented by: Sodium Chloride (Sodium Chloride 0.9% 10 Ml Syringe) 10 ml FLUSH ASDIRECTED PRN PRN Reason: Keep Vein Open Tbo-Filgrastim (Tbo-Filgrastim 480 Mcg/0.8 Ml Syringe) 420 mcg SUBCUT DAILY PENDING [facility] TO [facility] Last Admin: 09/22/20 09:49 Dose: 420 mcg Documented by: Discontinued Medications Hydrocodone Bitart/Acetaminophen (Acetaminophen/Hydrocodone 325-10 Mg Tab) 1 tab PO Q4H PRN PRN Reason: Pain Bisacodyl (Bisacodyl 5 Mg Tab) 10 mg PO ONETIME ONE Stop: 09/20/20 14:16 Last Admin: 09/20/20 14:59 Dose: 10 mg Documented by: Diphenhydramine HCl (Diphenhydramine 50 Mg/Ml Sdv) 50 mg IVPUSH ONETIME ONE Stop: 09/19/20 11:01 Last Admin: 09/19/20 11:36 Dose: 50 mg Documented by: Famotidine (Famotidine 20 Mg/2 Ml Sdv) 20 mg IVPUSH ONETIME ONE Stop: 09/19/20 11:01 Last Admin: 09/19/20 11:40 Dose: 20 mg Documented by: Furosemide (Furosemide 20 Mg/2 Ml Vial) 20 mg IVPUSH NOW ONE Stop: 09/21/20 11:16 Last Admin: 09/21/20 11:32 Dose: 20 mg Documented by: Furosemide (Furosemide 20 Mg/2 Ml Vial) 20 mg IVPUSH NOW ONE Stop: 09/22/20 08:46 Last Admin: 09/22/20 09:49 Dose: 20 mg Documented by: Hydromorphone HCl (Hydromorphone 0.5 Mg/0.5 Ml Syringe) 0.5 mg IVPUSH ONETIME ONE Stop: 09/19/20 10:21 Last Admin: 09/19/20 10:15 Dose: 0.5 mg Documented by: Sodium Chloride (Normal Saline) 1,000 mls @ 125 mls/hr IV ASDIRECTED PENDING SALE TO [facility] Last Admin: 09/17/20 11:28 Dose: 125 mls/hr Documented by: Cefepime HCl 2 gm/ Sodium (Chloride) 50 mls @ 100 mls/hr IV Q8H PENDING [facility]ALE TO [facility] Last Admin: 09/19/20 10:40 Dose: Not Given Documented by: Vancomycin HCl 1.75 gm/ Sodium (Chloride) 250 mls @ 166.667 mls/hr IV ONETIME ONE Stop: 09/16/20 19:59 Last Admin: 09/16/20 18:43 Dose: 166.667 mls/hr Documented by: Vancomycin HCl 1.25 gm/ Sodium (Chloride) 250 mls @ 166.667 mls/hr IV Q12H [facility] Stop: 09/17/20 10:30 Last Admin: 09/17/20 08:06 Dose: 166.667 mls/hr Documented by: Vancomycin HCl 1.25 gm/ Sodium (Chloride) 250 mls @ 166.667 mls/hr IV Q12H [facility] Stop: 09/19/20 10:00 Last Admin: 09/19/20 08:25 Dose: 166.667 mls/hr Documented by: Vancomycin HCl 1.25 gm/ Sodium (Chloride) 250 mls @ 167 mls/hr IV Q8H PENDING [facility]ALE TO [facility] Lidocaine HCl (Xylocaine-Mpf 1%) Confirm Administered Dose 2 mls @ as directed .ROUTE .STK-MED ONE Stop: 09/22/20 11:19 Ondansetron HCl (Ondansetron 4 Mg/2 Ml Sdv) 4 mg IV Q4H PRN PRN Reason: Nausea/Vomiting Last Admin: 09/17/20 10:14 Dose: 4 mg Documented by: Pantoprazole Sodium (Pantoprazole 40 Mg Vial) 40 mg IVPUSH Q24H PENDING SALE TO [facility] Last Admin: 09/16/20 23:33 Dose: 40 mg Documented by: Tbo-Filgrastim (Tbo-Filgrastim 300 Mcg/0.5 Ml Syringe) 420 mcg SUBCUT DAILY PENDING SALE TO [facility] Last Admin: 09/17/20 14:51 Dose: 420 mcg Documented by: Vancomycin HCl (Vancomycin 1 Gm Sdv) 1 gm IV .PHARMACY TO DOSE AISSATOU Stop: 09/16/20 18:01 - Exam General: Alert, Oriented, Cooperative, Mild Distress Lungs: Clear to Auscultation, Normal Respiratory Effort Cardiovascular: Regular Rate, Regular Rhythm, No Murmurs GI/Abdominal Exam: Soft, Non-Tender, No Organomegaly, No Distention Extremities: Non-Tender, Pedal Edema - Patient Data Lab Results Last 24 hrs: Laboratory Results - last 24 hr 09/22/20 09/22/20 Range/Units 04:05 04:05 WBC 1.4 L (4.5-11.0) K/uL RBC 3.17 L (4.30-5.90) M/uL Hgb 9.6 L (12.0-15.0) g/dL Hct 28.2 L (40.0-54.0) % MCV 89 (80-98) fL MCH 30 (27-31) pg MCHC 34 (32-36) % Plt Count 77 L (150-400) K/uL Add Manual Diff Yes Neutrophils % (Manual) 15 L (36-66) % Band Neutrophils % 8 (5-11) % Lymphocytes % (Manual) 64 H (24-44) % Monocytes % (Manual) 8 H (2-6) % Eosinophils % (Manual) 5 H (2-4) % Sodium 143 (140-148) mmol/L Potassium 3.7 (3.6-5.2) mmol/L Chloride 103 (100-108) mmol/L Carbon Dioxide 32 (21-32) mmol/L Anion Gap 8.4 (5.0-14.0) mmol/L BUN 10 (7-18) mg/dL Creatinine 1.0 (0.8-1.3) mg/dL Est Cr Clr Drug Dosing 85.82 mL/min Estimated GFR (MDRD) > 60 (>60) Glucose 87 (74-106) mg/dL Calcium 7.6 L (8.5-10.1) mg/dL Result Diagrams: 09/22/20 04:05 09/22/20 04:05 Kash Results Last 24 hrs: Microbiology 09/16/20 17:40 Aerobic Blood Culture - Final Blood - Arm, Left NO GROWTH AFTER 5 DAYS Anaerobic Blood Culture - Final NO GROWTH AFTER 5 DAYS 09/16/20 17:30 Aerobic Blood Culture - Final Blood - Arm, Right NO GROWTH AFTER 5 DAYS Anaerobic Blood Culture - Final NO GROWTH AFTER 5 DAYS Sepsis Event Note - Evaluation Sepsis Screening Result: No Definite Risk - Focused Exam Vital Signs: Vital Signs Temp Pulse Resp BP Pulse Ox 09/22/20 13:10 98.2 F 89 12 133/76 99 09/22/20 08:20 98.1 F 90 16 152/78 H 97 - Problem List Review Problem List Initiated/Reviewed/Updated: Yes - My Orders Last 24 Hours: My Active Orders 09/23/20 05:00 CBC WITH AUTO DIFF [HEME] Timed - Plan Plan:: ASSESSMENT AND PLAN NEUTROPENIC FEVER-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 Stable since admission with only low-grade temperature elevations, neutrophil count remains extremely low. -2 sets of blood cultures pending -CBC with differential in a.m. -broad-spectrum antibiotic therapy; Zyvox and meropenem -Tylenol as needed for fever -Saline lock IV -Granulocyte colony-stimulating factor-5 mcg/kg daily HAIRY CELL LEUKEMIA-status post recent course of chemotherapy, complicated by neutropenia CHEMOTHERAPY RASH-associated with edema both upper extremities. Rash does appear to be fading, especially on the head neck -Furosemide 20 mg IV today MAINTENANCE ISSUES -DVT prophylaxis; SCUDs -GI prophylaxis; not indicated -Victor catheter; not indicated -Nutrition; regular diet -Nicotine dependence; not required CODE STATUS-FULL CODE ADMISSION STATUS-patient will be admitted to inpatient status, expect at least a 2 night hospital stay for evaluation and management of problems as outlined above. At the time of this admission I do not reasonably expected evaluation and management of this problem will require more than a 96 hour hospital stay. DISPOSITION-anticipate discharge to home after the hospital stay. PRIMARY CARE PROVIDER-Dr. Hastings
[2020-09-22] MEDS: Ondansetron 4 MG Tab.DIS PO PRN (20:40)
[2020-09-22] MEDS: Pantoprazole 40 MG Tab.CR PO SCH (20:47)
[2020-09-22] MEDS: LORazepam 0.5 MG Tab PO PRN (21:56)
[2020-09-23] MEDS: Linezolid 600 MG in Premix Bag 1 BAG IV SCH ×3 (00:35→23:30)
[2020-09-23] MEDS: Meropenem 1 GM in Sodium Chloride 0.9% 100 ML IV SCH ×3 (04:28→20:10)
[2020-09-23] MEDS: Magnesium Oxide 400 MG Tab PO SCH ×2 (08:22→20:10)
[2020-09-23] MEDS: Ibuprofen 400 MG Tab PO PRN (08:25)
--- NOTE | 2020-09-23 13:09 | PCM.PN ---
- General Info Date of Service: 09/23/20 Subjective Update: No acute events overnight. No fevers. No significant myalgias or arthralgias today. Nausea is better. Rash seems to be receding but persists on the arms. White blood cell count is up to 2.2 but absolute neutrophil count is only around 200. Cultures remain negative. Functional Status: Reports: Pain Controlled, Tolerating Diet - Review of Systems General: Denies: Fever - Patient Data Vitals - Most Recent: Last Vital Signs Temp 36.2 C 09/23/20 10:55 Pulse 86 09/23/20 10:55 Resp 18 09/23/20 10:55 BP 119/69 09/23/20 10:55 Pulse Ox 96 09/23/20 10:55 Weight - Most Recent: 86.4 kg I&O - Last 24 Hours: Intake & Output 09/22/20 09/23/20 09/23/20 22:59 06:59 14:59 Intake Total 550 400 880 Balance 550 400 880 Lab Results Last 24 Hours: Laboratory Results - last 24 hr 09/23/20 Range/Units 05:00 WBC 2.2 L (4.5-11.0) K/uL RBC 3.29 L (4.30-5.90) M/uL Hgb 10.0 L (12.0-15.0) g/dL Hct 29.3 L (40.0-54.0) % MCV 89 (80-98) fL MCH 30 (27-31) pg MCHC 34 (32-36) % Plt Count 74 L (150-400) K/uL Add Manual Diff Yes Neutrophils % (Manual) 15 L (36-66) % Band Neutrophils % 1 L (5-11) % Lymphocytes % (Manual) 79 H (24-44) % Monocytes % (Manual) 1 L (2-6) % Eosinophils % (Manual) 4 (2-4) % Med Orders - Current: Current Medications Acetaminophen (Acetaminophen 325 Mg Tab) 650 mg PO Q4H PRN PRN Reason: Pain (Mild 1-3)/fever Last Admin: 09/21/20 14:54 Dose: 650 mg Documented by: Hydrocodone Bitart/Acetaminophen (Acetaminophen/Hydrocodone 325-5 Mg Tab) 1 tab PO Q4H PRN PRN Reason: Pain Last Admin: 09/19/20 03:31 Dose: 1 tab Documented by: Calcium Carbonate/Glycine (Calcium Carbonate 500 Mg Tab.Chew) 1,000 mg PO Q2H PRN PRN Reason: Indigestion Last Admin: 09/16/20 21:51 Dose: 1,000 mg Documented by: Diphenhydramine HCl (Diphenhydramine 25 Mg Cap) 50 mg PO Q6H PRN PRN Reason: Itching Last Admin: 09/22/20 13:08 Dose: 50 mg Documented by: Hydromorphone HCl (Hydromorphone 0.5 Mg/0.5 Ml Syringe) 0.5 mg IVPUSH Q2H PRN PRN Reason: Pain (severe 7-10) Last Admin: 09/22/20 19:31 Dose: 0.5 mg Documented by: Linezolid 600 mg/ Premix 300 mls @ 300 mls/hr IV Q12H [facility] Last Admin: 09/23/20 12:46 Dose: 300 mls/hr Documented by: Meropenem 1 gm/ Sodium (Chloride) 100 mls @ 200 mls/hr IV Q8H [facility] Last Admin: 09/23/20 12:13 Dose: 200 mls/hr Documented by: Ibuprofen (Ibuprofen 400 Mg Tab) 400 mg PO Q6H PRN PRN Reason: Fever Last Admin: 09/23/20 08:25 Dose: 400 mg Documented by: Lorazepam (Lorazepam 0.5 Mg Tab) 0.5 mg PO BEDTIME PRN PRN Reason: Insomnia Last Admin: 09/22/20 21:56 Dose: 0.5 mg Documented by: Magnesium Hydroxide (Magnesium Hydroxide 400 Mg/5 Ml Susp 30 Ml Cup) 30 ml PO Q4H PRN PRN Reason: Constipation Magnesium Oxide (Magnesium Oxide 400 Mg Tab) 400 mg PO BID [facility] Last Admin: 09/23/20 08:22 Dose: 400 mg Documented by: Ondansetron HCl (Ondansetron 4 Mg Tab.Dis) 4 mg PO Q4H PRN PRN Reason: Nausea/Vomiting Last Admin: 09/22/20 20:40 Dose: 4 mg Documented by: Pantoprazole Sodium (Pantoprazole 40 Mg Tab.Cr) 40 mg PO BEDTIME [facility] Last Admin: 09/22/20 20:47 Dose: 40 mg Documented by: Polyethylene Glycol (Polyethylene Glycol 3350 Powder 17 Gm Packet) 17 gm PO DAILY PRN PRN Reason: Constipation Last Admin: 09/20/20 08:45 Dose: 17 gm Documented by: Prochlorperazine Maleate (Prochlorperazine 10 Mg Tab) 10 mg PO Q6H PRN PRN Reason: Nausea/Vomiting Last Admin: 09/17/20 07:24 Dose: 10 mg Documented by: Sodium Chloride (Sodium Chloride 0.9% 10 Ml Syringe) 10 ml FLUSH ASDIRECTED PRN PRN Reason: Keep Vein Open Tbo-Filgrastim (Tbo-Filgrastim 480 Mcg/0.8 Ml Syringe) 420 mcg SUBCUT DAILY [facility] Last Admin: 09/23/20 08:22 Dose: 420 mcg Documented by: Discontinued Medications Hydrocodone Bitart/Acetaminophen (Acetaminophen/Hydrocodone 325-10 Mg Tab) 1 tab PO Q4H PRN PRN Reason: Pain Bisacodyl (Bisacodyl 5 Mg Tab) 10 mg PO ONETIME ONE Stop: 09/20/20 14:16 Last Admin: 09/20/20 14:59 Dose: 10 mg Documented by: Diphenhydramine HCl (Diphenhydramine 50 Mg/Ml Sdv) 50 mg IVPUSH ONETIME ONE Stop: 09/19/20 11:01 Last Admin: 09/19/20 11:36 Dose: 50 mg Documented by: Famotidine (Famotidine 20 Mg/2 Ml Sdv) 20 mg IVPUSH ONETIME ONE Stop: 09/19/20 11:01 Last Admin: 09/19/20 11:40 Dose: 20 mg Documented by: Furosemide (Furosemide 20 Mg/2 Ml Vial) 20 mg IVPUSH NOW ONE Stop: 09/21/20 11:16 Last Admin: 09/21/20 11:32 Dose: 20 mg Documented by: Furosemide (Furosemide 20 Mg/2 Ml Vial) 20 mg IVPUSH NOW ONE Stop: 09/22/20 08:46 Last Admin: 09/22/20 09:49 Dose: 20 mg Documented by: Hydromorphone HCl (Hydromorphone 0.5 Mg/0.5 Ml Syringe) 0.5 mg IVPUSH ONETIME ONE Stop: 09/19/20 10:21 Last Admin: 09/19/20 10:15 Dose: 0.5 mg Documented by: Sodium Chloride (Normal Saline) 1,000 mls @ 125 mls/hr IV ASDIRECTED [facility] Last Admin: 09/17/20 11:28 Dose: 125 mls/hr Documented by: Cefepime HCl 2 gm/ Sodium (Chloride) 50 mls @ 100 mls/hr IV Q8H [facility] Last Admin: 09/19/20 10:40 Dose: Not Given Documented by: Vancomycin HCl 1.75 gm/ Sodium (Chloride) 250 mls @ 166.667 mls/hr IV ONETIME ONE Stop: 09/16/20 19:59 Last Admin: 09/16/20 18:43 Dose: 166.667 mls/hr Documented by: Vancomycin HCl 1.25 gm/ Sodium (Chloride) 250 mls @ 166.667 mls/hr IV Q12H [facility] Stop: 09/17/20 10:30 Last Admin: 09/17/20 08:06 Dose: 166.667 mls/hr Documented by: Vancomycin HCl 1.25 gm/ Sodium (Chloride) 250 mls @ 166.667 mls/hr IV Q12H [facility] Stop: 09/19/20 10:00 Last Admin: 09/19/20 08:25 Dose: 166.667 mls/hr Documented by: Vancomycin HCl 1.25 gm/ Sodium (Chloride) 250 mls @ 167 mls/hr IV Q8H [facility] Lidocaine HCl (Xylocaine-Mpf 1%) Confirm Administered Dose 2 mls @ as directed .ROUTE .STK-MED ONE Stop: 09/22/20 11:19 Ondansetron HCl (Ondansetron 4 Mg/2 Ml Sdv) 4 mg IV Q4H PRN PRN Reason: Nausea/Vomiting Last Admin: 09/17/20 10:14 Dose: 4 mg Documented by: Pantoprazole Sodium (Pantoprazole 40 Mg Vial) 40 mg IVPUSH Q24H [facility] Last Admin: 09/16/20 23:33 Dose: 40 mg Documented by: Tbo-Filgrastim (Tbo-Filgrastim 300 Mcg/0.5 Ml Syringe) 420 mcg SUBCUT DAILY [facility] Last Admin: 09/17/20 14:51 Dose: 420 mcg Documented by: Vancomycin HCl (Vancomycin 1 Gm Sdv) 1 gm IV .PHARMACY TO DOSE [facility] Stop: 09/16/20 18:01 - Exam Quality Assessment: No: Supplemental Oxygen General: Alert, Oriented, Cooperative, No Acute Distress Lungs: Normal Respiratory Effort GI/Abdominal Exam: Soft, No Distention Skin: Warm, Dry, Rash (non-blanching erythematous rash on arms) Psy/Mental Status: Alert, Normal Affect - Patient Data Lab Results Last 24 hrs: Laboratory Results - last 24 hr 09/23/20 Range/Units 05:00 WBC 2.2 L (4.5-11.0) K/uL RBC 3.29 L (4.30-5.90) M/uL Hgb 10.0 L (12.0-15.0) g/dL Hct 29.3 L (40.0-54.0) % MCV 89 (80-98) fL MCH 30 (27-31) pg MCHC 34 (32-36) % Plt Count 74 L (150-400) K/uL Add Manual Diff Yes Neutrophils % (Manual) 15 L (36-66) % Band Neutrophils % 1 L (5-11) % Lymphocytes % (Manual) 79 H (24-44) % Monocytes % (Manual) 1 L (2-6) % Eosinophils % (Manual) 4 (2-4) % Result Diagrams: 09/23/20 05:00 09/22/20 04:05 Sepsis Event Note - Evaluation Sepsis Screening Result: No Definite Risk - Focused Exam Vital Signs: Vital Signs Temp Pulse Resp BP Pulse Ox 09/23/20 10:55 36.2 C 86 18 119/69 96 09/23/20 06:57 36.4 C 82 18 117/66 95 09/23/20 04:00 36.5 C 88 16 120/62 96 - Problem List Review Problem List Initiated/Reviewed/Updated: Yes - My Orders Last 24 Hours: My Active Orders 09/24/20 05:00 CBC WITH AUTO DIFF [HEME] Timed - Plan Plan:: ASSESSMENT AND PLAN NEUTROPENIC FEVER-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 Stable since admission and temperature curve has improved. Cultures have been negative. Still quite neutropenic. -Follow-up cultures -CBC with differential in a.m. -broad-spectrum antibiotic therapy; Zyvox and meropenem, transition to oral at the time of discharge -Tylenol as needed for fever -Saline lock IV -Granulocyte colony-stimulating factor-5 mcg/kg daily HAIRY CELL LEUKEMIA-status post recent course of chemotherapy, complicated by neutropenia. Outpatient follow-up- CHEMOTHERAPY RASH-associated with edema both upper extremities. Rash continues to fade. No significant fluid today. -Reassess volume status in the morning MAINTENANCE ISSUES -DVT prophylaxis; SCUDs -GI prophylaxis; not indicated -Victor catheter; not indicated -Nutrition; regular diet DISPOSITION-anticipate discharge to home after the hospital stay. Alirio Matute MD
[2020-09-23] MEDS: Pantoprazole 40 MG Tab.CR PO SCH (20:10)
[2020-09-23] MEDS: LORazepam 0.5 MG Tab PO PRN (22:04)
[2020-09-23] MEDS: Ondansetron 4 MG Tab.DIS PO PRN (23:28)
[2020-09-24] MEDS: Meropenem 1 GM in Sodium Chloride 0.9% 100 ML IV SCH (03:41)
[2020-09-24 07:05] VITALS: BP 122/70; PULSE 88
[2020-09-24] MEDS: Magnesium Oxide 400 MG Tab PO SCH (08:46)
--- NOTE | 2020-09-24 10:41 | PCM.DCSUM1 ---
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 He was admitted for management of neutropenic fever and presumed chemo drug rash. Diagnosis: Stroke: No - Discharge Data Discharge Date: 09/24/20 Discharge Disposition: Home, Self-Care 01 Condition: Good - Referral to Home Health Primary Care Physician: Zachary Hastings MD - Discharge Diagnosis/Problem(s) (1) Neutropenic fever SNOMED Code(s): 443068818 ICD Code: D70.9 - NEUTROPENIA, UNSPECIFIED; R50.81 - FEVER PRESENTING WITH CONDITIONS CLASSIFIED ELSEWHERE Status: Acute (2) Hairy cell leukemia SNOMED Code(s): 235565820 ICD Code: C91.40 - HAIRY CELL LEUKEMIA NOT HAVING ACHIEVED REMISSION Status: Chronic Qualifiers: Leukemia Active/Remission status: relapsed Qualified Code(s): C91.42 - Hairy cell leukemia, in relapse (3) Allergic drug rash due to multiple agents SNOMED Code(s): 08649686 ICD Code: L27.0 - GEN SKIN ERUPTION DUE TO DRUGS AND MEDS TAKEN INTERNALLY; T50.915A - ADVERSE EFFECT OF MULTIPLE UNSP DRUG/MEDS/BIOL SUBST, INIT Status: Acute - Patient Summary/Data Hospital Course: Fritz presented as a direct admission for management of neutropenic fever. He had recently underwent 5 days of chemotherapy for recurrent hairy cell leukemia. He experienced a rash for several days after the chemotherapy was completed and then developed fevers as high as 102.6. Work-up in the emergency room earlier in the day had revealed significant neutropenia but no strong evidence to support a localized infection. The patient was feeling well and wanted to go home so he was not admitted. Later in the day he had another fever so he was sent to the hospital for direct admission. He was started on broad-spectrum antibiotic therapy with vancomycin and meropenem. Additional cultures were obtained. Over the next couple of days there were no acute issues. He did have a few low-grade fevers but in general was starting to feel better. Unfortunately after 3 days on the vancomycin he developed myalgias, arthralgias as well as worsening of his rash. There was concern for vancomycin flushing syndrome since it seemed to be occurring around the time of this infusion. This antibiotic was discontinued and linezolid was started in its place. Linezolid and meropenem were continued for the rest of the hospital stay. Fortunately we did see a steady improvement in the rash. His white blood cell count has been improving but his absolute neutrophil count does remain low. He has been afebrile for several days. He has no localized symptoms. All of his cultures have been unremarkable. Patient feels well enough to go home at this point. I did discuss the situation with his oncologist. They were comfortable with him going home with his white blood cell count up over 2 even though his absolute neutrophil count is still slightly below 500. Patient will be on cefdinir for antibiotic coverage because of a penicillin allergy. We did discuss ciprofloxacin but he is allergic to this so we elected to use monotherapy with the cefdinir. He will have follow-up in 3 days time to recheck his CBC and absolute neutrophil count. He was encouraged to seek treatment if he had additional fevers or new symptoms after hospital discharge. - Patient Instructions Diet: Regular Diet as Tolerated Activity: As Tolerated Showering/Bathing: May Shower Notify Provider of: Fever, Increased Pain Other/Special Instructions: 1. You were in the hospital for management of neutropenic fever. We did not determine a causative bacteria. All of the cultures we obtained have been unremarkable. Your condition has been improving with antibiotic therapy. I do recommend additional antibiotics after hospital discharge. Please take cefdinir 300 mg twice daily with food. You should start this medication as soon as you pick it up from the pharmacy this morning. If your white blood cell count has improved enough on Wednesday you may be able to stop the medication at that time. Further directions about when to stop the medication will come from the oncology clinic. 2. Continue your other home medications as previously prescribed. 3. Follow-up with the infusion center on Wednesday to recheck your white blood cell count, hemoglobin and platelets. - Discharge Plan *PRESCRIPTION DRUG MONITORING PROGRAM REVIEWED*: Not Applicable *COPY OF PRESCRIPTION DRUG MONITORING REPORT IN PATIENT [facility]: Not Applicable Prescriptions/Med Rec: Cefdinir 300 mg PO BID #20 capsule Home Medications: Home Meds Acetaminophen [Tylenol Extra Strength] 1,000 mg PO Q6HR PRN 09/16/20 [History] Ibuprofen 600 mg PO Q6HR PRN 09/16/20 [History] Ondansetron [Zofran ODT] 4 mg PO Q6H PRN 09/16/20 [History] Prochlorperazine [Compazine] 10 mg PO Q6H PRN 09/16/20 [History] diphenhydrAMINE [Benadryl] 50 mg PO Q6HR PRN 09/16/20 [History] LORazepam [Ativan] 0.5 mg PO DAILY PRN 09/22/20 [History] Cefdinir 300 mg PO BID #20 capsule 09/24/20 [Rx] Oxygen Therapy Mode: Room Air Patient Handouts: Cefdinir Capsules Referrals: Paty Sarah MD [Ordering Only Provider] - (09/27 - recheck CBC) - Discharge Summary/Plan Comment DC Time >30 min.: No - Patient Data Vitals - Most Recent: Last Vital Signs Temp 35.7 C L 09/24/20 07:04 Pulse 88 09/24/20 07:04 Resp 16 09/24/20 07:04 BP 122/70 09/24/20 07:04 Pulse Ox 97 09/24/20 07:04 Weight - Most Recent: 81.737 kg I&O - Last 24 hours: Intake & Output 09/23/20 09/24/20 09/24/20 22:59 06:59 14:59 Intake Total 700 240 Balance 700 240 Lab Results - Last 24 hrs: Laboratory Results - last 24 hr 09/24/20 Range/Units 04:05 WBC 2.4 L (4.5-11.0) K/uL RBC 3.34 L (4.30-5.90) M/uL Hgb 10.1 L (12.0-15.0) g/dL Hct 29.5 L (40.0-54.0) % MCV 88 (80-98) fL MCH 30 (27-31) pg MCHC 34 (32-36) % Plt Count 89 L (150-400) K/uL Add Manual Diff Yes Neutrophils % (Manual) 14 L (36-66) % Lymphocytes % (Manual) 80 H (24-44) % Monocytes % (Manual) 1 L (2-6) % Eosinophils % (Manual) 5 H (2-4) % Med Orders - Current: Current Medications Acetaminophen (Acetaminophen 325 Mg Tab) 650 mg PO Q4H PRN PRN Reason: Pain (Mild 1-3)/fever Last Admin: 09/21/20 14:54 Dose: 650 mg Documented by: Hydrocodone Bitart/Acetaminophen (Acetaminophen/Hydrocodone 325-5 Mg Tab) 1 tab PO Q4H PRN PRN Reason: Pain Last Admin: 09/19/20 03:31 Dose: 1 tab Documented by: Calcium Carbonate/Glycine (Calcium Carbonate 500 Mg Tab.Chew) 1,000 mg PO Q2H PRN PRN Reason: Indigestion Last Admin: 09/16/20 21:51 Dose: 1,000 mg Documented by: Diphenhydramine HCl (Diphenhydramine 25 Mg Cap) 50 mg PO Q6H PRN PRN Reason: Itching Last Admin: 09/22/20 13:08 Dose: 50 mg Documented by: Hydromorphone HCl (Hydromorphone 0.5 Mg/0.5 Ml Syringe) 0.5 mg IVPUSH Q2H PRN PRN Reason: Pain (severe 7-10) Last Admin: 09/22/20 19:31 Dose: 0.5 mg Documented by: Linezolid 600 mg/ Premix 300 mls @ 300 mls/hr IV Q12H [facility] Last Admin: 09/23/20 23:30 Dose: 300 mls/hr Documented by: Meropenem 1 gm/ Sodium (Chloride) 100 mls @ 200 mls/hr IV Q8H [facility] Last Admin: 09/24/20 03:41 Dose: 200 mls/hr Documented by: Ibuprofen (Ibuprofen 400 Mg Tab) 400 mg PO Q6H PRN PRN Reason: Fever Last Admin: 09/23/20 08:25 Dose: 400 mg Documented by: Lorazepam (Lorazepam 0.5 Mg Tab) 0.5 mg PO BEDTIME PRN PRN Reason: Insomnia Last Admin: 09/23/20 22:04 Dose: 0.5 mg Documented by: Magnesium Hydroxide (Magnesium Hydroxide 400 Mg/5 Ml Susp 30 Ml Cup) 30 ml PO Q4H PRN PRN Reason: Constipation Magnesium Oxide (Magnesium Oxide 400 Mg Tab) 400 mg PO BID [facility] Last Admin: 09/24/20 08:46 Dose: 400 mg Documented by: Ondansetron HCl (Ondansetron 4 Mg Tab.Dis) 4 mg PO Q4H PRN PRN Reason: Nausea/Vomiting Last Admin: 09/23/20 23:28 Dose: 4 mg Documented by: Pantoprazole Sodium (Pantoprazole 40 Mg Tab.Cr) 40 mg PO BEDTIME [facility] Last Admin: 09/23/20 20:10 Dose: 40 mg Documented by: Polyethylene Glycol (Polyethylene Glycol 3350 Powder 17 Gm Packet) 17 gm PO DAILY PRN PRN Reason: Constipation Last Admin: 09/20/20 08:45 Dose: 17 gm Documented by: Prochlorperazine Maleate (Prochlorperazine 10 Mg Tab) 10 mg PO Q6H PRN PRN Reason: Nausea/Vomiting Last Admin: 09/17/20 07:24 Dose: 10 mg Documented by: Sodium Chloride (Sodium Chloride 0.9% 10 Ml Syringe) 10 ml FLUSH ASDIRECTED PRN PRN Reason: Keep Vein Open Tbo-Filgrastim (Tbo-Filgrastim 480 Mcg/0.8 Ml Syringe) 420 mcg SUBCUT DAILY [facility] Last Admin: 09/24/20 08:46 Dose: 420 mcg Documented by: Discontinued Medications Hydrocodone Bitart/Acetaminophen (Acetaminophen/Hydrocodone 325-10 Mg Tab) 1 tab PO Q4H PRN PRN Reason: Pain Bisacodyl (Bisacodyl 5 Mg Tab) 10 mg PO ONETIME ONE Stop: 09/20/20 14:16 Last Admin: 09/20/20 14:59 Dose: 10 mg Documented by: Diphenhydramine HCl (Diphenhydramine 50 Mg/Ml Sdv) 50 mg IVPUSH ONETIME ONE Stop: 09/19/20 11:01 Last Admin: 09/19/20 11:36 Dose: 50 mg Documented by: Famotidine (Famotidine 20 Mg/2 Ml Sdv) 20 mg IVPUSH ONETIME ONE Stop: 09/19/20 11:01 Last Admin: 09/19/20 11:40 Dose: 20 mg Documented by: Furosemide (Furosemide 20 Mg/2 Ml Vial) 20 mg IVPUSH NOW ONE Stop: 09/21/20 11:16 Last Admin: 09/21/20 11:32 Dose: 20 mg Documented by: Furosemide (Furosemide 20 Mg/2 Ml Vial) 20 mg IVPUSH NOW ONE Stop: 09/22/20 08:46 Last Admin: 09/22/20 09:49 Dose: 20 mg Documented by: Hydromorphone HCl (Hydromorphone 0.5 Mg/0.5 Ml Syringe) 0.5 mg IVPUSH ONETIME ONE Stop: 09/19/20 10:21 Last Admin: 09/19/20 10:15 Dose: 0.5 mg Documented by: Sodium Chloride (Normal Saline) 1,000 mls @ 125 mls/hr IV ASDIRECTED [facility] Last Admin: 09/17/20 11:28 Dose: 125 mls/hr Documented by: Cefepime HCl 2 gm/ Sodium (Chloride) 50 mls @ 100 mls/hr IV Q8H [facility] Last Admin: 09/19/20 10:40 Dose: Not Given Documented by: Vancomycin HCl 1.75 gm/ Sodium (Chloride) 250 mls @ 166.667 mls/hr IV ONETIME ONE Stop: 09/16/20 19:59 Last Admin: 09/16/20 18:43 Dose: 166.667 mls/hr Documented by: Vancomycin HCl 1.25 gm/ Sodium (Chloride) 250 mls @ 166.667 mls/hr IV Q12H [facility] Stop: 09/17/20 10:30 Last Admin: 09/17/20 08:06 Dose: 166.667 mls/hr Documented by: Vancomycin HCl 1.25 gm/ Sodium (Chloride) 250 mls @ 166.667 mls/hr IV Q12H [facility] Stop: 09/19/20 10:00 Last Admin: 09/19/20 08:25 Dose: 166.667 mls/hr Documented by: Vancomycin HCl 1.25 gm/ Sodium (Chloride) 250 mls @ 167 mls/hr IV Q8H [facility] Lidocaine HCl (Xylocaine-Mpf 1%) Confirm Administered Dose 2 mls @ as directed .ROUTE .STK-MED ONE Stop: 09/22/20 11:19 Ondansetron HCl (Ondansetron 4 Mg/2 Ml Sdv) 4 mg IV Q4H PRN PRN Reason: Nausea/Vomiting Last Admin: 09/17/20 10:14 Dose: 4 mg Documented by: Pantoprazole Sodium (Pantoprazole 40 Mg Vial) 40 mg IVPUSH Q24H [facility] Last Admin: 09/16/20 23:33 Dose: 40 mg Documented by: Tbo-Filgrastim (Tbo-Filgrastim 300 Mcg/0.5 Ml Syringe) 420 mcg SUBCUT DAILY [facility] Last Admin: 09/17/20 14:51 Dose: 420 mcg Documented by: Vancomycin HCl (Vancomycin 1 Gm Sdv) 1 gm IV .PHARMACY TO DOSE [facility] Stop: 09/16/20 18:01
== END 2020-09-24 10:59 | disposition home or self-care (01) | DRG 660 ==
LOC: JP.MS 16:58
PROVIDERS: ADMIT Hospitalist; ATTEND Internal Medicine
DX: D70.9 Neutropenia, unspecified (principal); R50.81 Fever presenting with conditions classified elsewhere; C91.42 Hairy cell leukemia, in relapse; L27.0 Generalized skin eruption due to drugs and medicaments taken internally; T45.1X5A Adverse effect of antineoplastic and immunosuppressive drugs, initial encounter; M79.10 Myalgia, unspecified site; M25.50 Pain in unspecified joint; H54.7 Unspecified visual loss; M54.9 Dorsalgia, unspecified; G89.29 Other chronic pain; D84.9 Immunodeficiency, unspecified; Z90.49 Acquired absence of other specified parts of digestive tract; Z88.0 Allergy status to penicillin; Z79.899 Other long term (current) drug therapy
CPT/HCPCS: 36415; 71046; 71046-26; 80048; 80053; 80202; 83735; 85025; 87040; 99222; 99231; 99232; 99238; A9270-GY; C9113; J0692; J1170; J1200; J1447; J1940; J2020; J2185; J2405; J3370; J3490; J7030; J7050; Q0164

== ENCOUNTER 2024-10-04 19:18 | Emergency (ER) | payer BC ==
[2024-10-04] MEDS ORDERED: Sodium Chloride 0.9% 10 ML Syringe FLUSH PRN (20:18)
[2024-10-04 20:32] LABS: BASOPHILS PERCENT AUTO 0.5 % (0.1-1.3); EOSINOPHILS ABSOLUTE AUTO 0.04 K/uL (0.00-0.40); EOSINOPHILS PERCENT AUTO 0.9 % (0.0-5.4); HEMATOCRIT 49.4 % (38.4-49.7); HEMOGLOBIN 17.5 g/dL (12.9-16.9); IMMATURE GRAN PERCENT AUTO 0.2 % (0.0-0.7); LYMPHOCYTES ABSOLUTE AUTO 0.96 K/uL (0.8-3.3); LYMPHOCYTES PERCENT AUTO 22.1 % (11.4-47.7); MEAN CORPUSCULAR HGB CONC 35.4 g/dL (31.6-35.5); MEAN CORPUSCULAR VOLUME 87.6 fL (81.4-99.0); MONOCYTES ABSOLUTE AUTO 0.61 K/uL (0.20-0.90); NEUTROPHILS ABSOLUTE AUTO 2.71 K/uL (1.0-7.6); NEUTROPHILS PERCENT AUTO 62.3 % (40.0-78.1); PLATELET COUNT,PLT 134 K/uL (130-375); RED BLOOD CELL COUNT 5.64 M/uL (4.14-5.76); WHITE BLOOD CELL COUNT,WBC 4.4 K/uL (3.2-11.0)
[2024-10-04 20:33] LABS: BASOPHILS ABSOLUTE AUTO 0.02 K/uL (0.00-0.10); IMMATURE GRAN ABSOLUTE AUTO 0.01 K/uL (0.00-0.23)
[2024-10-04] MEDS: Sodium Chloride 0.9% 80 ML IV SCH (20:45)
[2024-10-04] MEDS: Iopamidol 612 MG/ML 100 ML Bottle IV SCH (20:45)
[2024-10-04 20:51] LABS: A/G RATIO 1.2 (1.2-2.2); ALANINE AMINOTRANSFERASE,ALT 63 U/L (12-78); ALBUMIN 3.7 g/dL (3.4-5.0); ALKALINE PHOSPHATASE 131 U/L (46-116); ANION GAP 14.5 mmol/L (5.0-14.0); ASPARTATE AMNIOTRANSFERASE,AST 40 U/L (15-37); BILIRUBIN TOTAL 0.4 mg/dL (0.2-1.0); BLOOD UREA NITROGEN,BUN 15 mg/dL (7-18); CALCIUM 8.9 mg/dL (8.5-10.1); CARBON DIOXIDE,CO2 23 mmol/L (21-32); CHLORIDE,CL 104 mmol/L (100-108); CREATININE 1.1 mg/dL (0.8-1.3); EST CRCL DRUG DOSING (CG) 74.27 mL/min; ESTIMATED GFR 80 mL/min (>60); GLUCOSE RANDOM 88 mg/dL (74-106); POTASSIUM,K 3.5 mmol/L (3.6-5.2); PROTEIN TOTAL,TP 6.9 g/dL (6.4-8.2); SODIUM,NA 138 mmol/L (140-148)
[2024-10-04] MEDS: Lactated Ringers 1,000 ML IV SCH (21:00)
[2024-10-04 21:23] LABS: APPEARANCE,URINE CLEAR (CLEAR); BILIRUBIN,URINE NEGATIVE (NEGATIVE); COLOR,URINE YELLOW (YELLOW); GLUCOSE,URINE NEGATIVE (NEGATIVE); KETONES,URINE NEGATIVE (NEGATIVE); LEUKOCYTE ESTERASE,URINE NEGATIVE (NEGATIVE); NITRITE,URINE NEGATIVE (NEGATIVE); OCCULT BLOOD,URINE TRACE-INTACT (NEGATIVE); PH,URINE 5.5 (5.0-8.0); PROTEIN,URINE NEGATIVE (NEGATIVE); UROBILINOGEN,URINE 0.2 EU/dL (0.2-1.0)
[2024-10-04 21:29] LABS: AMORPHOUS SEDIMENT,URINE NOT SEEN; BACTERIA,URINE RARE; EPITHELIAL CELLS,URINE NOT SEEN; MUCUS,URINE NOT SEEN; RBC,URINE 0-5 (0-5); WBC,URINE 0-5 (0-5)
[2024-10-04 21:51] VITALS: BP 130/79; PULSE 76
== END 2024-10-04 22:10 | disposition home or self-care (01) ==
LOC: JP.ED 19:18
DX: K52.9 Noninfective gastroenteritis and colitis, unspecified (principal); Z90.49 Acquired absence of other specified parts of digestive tract; Z88.0 Allergy status to penicillin; Z88.1 Allergy status to other antibiotic agents; Z88.5 Allergy status to narcotic agent
CPT/HCPCS: 36415; 74177; 80053; 81001; 83605; 83690; 85025; 96360; 99284; J7120; Q9967; 99283

== ENCOUNTER 2024-10-18 06:31 | Day surgery (SDC) | payer BC ==
[2024-10-18] MEDS ORDERED: Midazolam 1 MG/ML 2 ML SDV ONE (07:00)
[2024-10-18] MEDS ORDERED: Propofol 200 MG/20 ML SDV ONE ×2 (07:00→07:47)
[2024-10-18] MEDS ORDERED: fentaNYL 50 MCG/ML SDV ONE (07:01)
[2024-10-18] MEDS: Lactated Ringers 1,000 ML IV SCH (07:17)
[2024-10-18 08:57] VITALS: BP 124/79; PULSE 63
== END 2024-10-18 09:04 | disposition home or self-care (01) ==
LOC: JP.SDS 06:31
PROVIDERS: ATTEND Surgery
DX: Z12.11 Encounter for screening for malignant neoplasm of colon (principal); K63.5 Polyp of colon; K62.1 Rectal polyp
CPT/HCPCS: 00811-QZ; J2250; J2704; J3010; J7120